=== PATIENT | female | born 1990 | race African-American/Black ===

== ENCOUNTER 2017-08-02 08:49 | Emergency (ER) | payer MEDICAID ==
[~2017-08-02] VITALS: Ht 167.6 cm; Wt 56.7 kg
[2017-08-02 09:17] VITALS: BP 118/76
== END 2017-08-02 09:41 | disposition home or self-care (01) ==
LOC: ER 08:49
DX: N39.0 Urinary tract infection, site not specified (principal)

== ENCOUNTER 2017-09-01 09:54 | Emergency (ER) | payer MEDICAID ==
[~2017-09-01] VITALS: Ht 167.6 cm; Wt 55.3 kg
[2017-09-01] MEDS ORDERED: SODIUM CHLORIDE 0.9% 1,000 ML IV ONE (10:14)
[2017-09-01 10:35] LABS: Basophils # (auto) 0 uL; Eosinophils # (auto) 0.1 uL; Hemoglobin 10.9 g/dL (12.2-16.2); Lymphocytes # (auto) 0.8 uL; Mean Platelet Volume 7.6 fL (6.9-10.8); Neutrophils # (auto) 5.5 uL; Red Cell Distribution Width 15.8 % (11.8-14.3); White Blood Cell 7.1 10^3/uL (4.4-10.8)
[2017-09-01 10:37] LABS: Basophils % (auto) 0.3 % (0.0-2.0); Eosinophils % (auto) 1.1 % (0.0-7.0); Hematocrit 33.3 % (36.0-46.0); Lymphocytes % (auto) 11.9 % (10.0-50.0); Mean Corpuscular Hemoglobin 26.6 pg (28.0-32.0); Mean Corpuscular Hgb Conc. 32.8 g/dL (32.0-36.0); Monocytes # (auto) 0.6 uL; Monocytes % (auto) 8.9 % (0.0-12.0); Neutrophils % (auto) 77.8 % (37.0-80.0); Platelet Count (auto) 284 10^3/uL (140-450)
[2017-09-01 11:04] LABS: Albumin 3.1 g/dL (3.4-5.0); BUN/Creatinine Ratio 11.6; Bilirubin, Total 0.2 mg/dL (0.2-1.0); Calcium 8.5 mg/dL (8.5-10.1); Total Protein 7.2 g/dL (6.4-8.2)
[2017-09-01 11:08] LABS: INR 0.98 (0.9-1.15); Prothrombin Time 10.7 sec (9.37-12.3)
[2017-09-01 11:11] VITALS: BP 125/70
[2017-09-01 11:23] LABS: Urine RBC None Seen /hpf (0 - 4)
[2017-09-01 11:30] LABS: Urine Bilirubin Negative (Negative); Urine Blood Negative /uL (Negative); Urine Color Yellow (Yellow); Urine Glucose Normal (Normal); Urine Ketone Negative (Negative); Urine Nitrite Negative (Negative); Urine Squamous Epithelial Cell FEW /hpf (<5); Urine Urobilinogen Normal (Negative); Urine pH 6.5 (5.0-8.0)
== END 2017-09-01 12:03 | disposition home or self-care (01) ==
LOC: ER 09:54 → EDBD 09:54 → ER 12:03
DX: K59.00 Constipation, unspecified (principal)
CPT/HCPCS: 36415; 74176; 80053; 81001; 85025; 85610; 85730; 96360; 99285; J7030

== ENCOUNTER 2018-11-03 19:29 | Emergency (ER) | payer MEDICAID ==
[~2018-11-03] VITALS: Ht 167.6 cm; Wt 59.0 kg
[2018-11-03 21:31] LABS: Urine Bacteria NONE SEEN /hpf (None Seen); Urine Blood Negative /uL (Negative); Urine Mucus FEW (None Seen); Urine Specific Gravity 1.024 (1.001-1.035); Urine WBC 3 /hpf (0 - 5)
[2018-11-04 00:59] LABS: White Blood Cell 5.7 10^3/uL (4.4-10.8)
[2018-11-04 01:01] LABS: Basophils # (auto) 0 uL; Basophils % (auto) 0.5 % (0.0-2.0); Eosinophils # (auto) 0 uL; Eosinophils % (auto) 0.2 % (0.0-7.0); Hematocrit 34.3 % (36.0-46.0); Lymphocytes # (auto) 0.4 uL; Lymphocytes % (auto) 6.5 % (10.0-50.0); Mean Corpuscular Hemoglobin 25.3 pg (28.0-32.0); Mean Corpuscular Hgb Conc. 32.2 g/dL (32.0-36.0); Mean Corpuscular Volume 78.6 fL (80.0-100.0); Monocytes % (auto) 17.7 % (0.0-12.0); Neutrophils # (auto) 4.3 uL; Neutrophils % (auto) 75.1 % (37.0-80.0); Platelet Count (auto) 270 10^3/uL (140-450); Red Blood Cells 4.36 10^6/uL (4.0-5.20); Red Cell Distribution Width 15.6 % (11.8-14.3)
[2018-11-04 01:11] LABS: INR 1.02 (0.9-1.15); Partial Thromboplastin Time 27.5 sec (23.78-33.04); Prothrombin Time 10.9 sec (9.27-12.13)
[2018-11-04 01:13] LABS: Albumin 3.6 g/dL (3.4-5.0); Anion Gap 11 (5-15); BUN/Creatinine Ratio 10.8; Blood Urea Nitrogen 9 mg/dL (7-18); Calcium 8.4 mg/dL (8.5-10.1); Carbon Dioxide 24 mmol/L (21-32); Chloride 101 mmol/L (98-107); GFR African American 105 mL/min; GFR Non-African American 86 mL/min; Glucose 94 mg/dL (74-106); Potassium 3.7 mmol/L (3.5-5.1); Sodium 136 mmol/L (136-145)
[2018-11-04 01:19] LABS: Alanine Aminotransferase 15 U/L (13-56); Alkaline Phosphatase 77 U/L (45-117); Aspartate Aminotransferase 20 U/L (15-37); Bilirubin, Total 0.2 mg/dL (0.2-1.0); Total Protein 7.9 g/dL (6.4-8.2)
[2018-11-04] MEDS ORDERED: KETOROLAC TROMETH 30 MG/ML 1ML VIAL IV ONE (04:45)
[2018-11-04 06:57] VITALS: BP 107/67
== END 2018-11-04 08:18 | disposition home or self-care (01) ==
LOC: ER 19:29
DX: K29.70 Gastritis, unspecified, without bleeding (principal)
CPT/HCPCS: 36415; 80053; 81001; 81025; 83735; 84484; 85025; 85379; 85610; 85730; 93005; 96374; 99284; J1885

== ENCOUNTER 2019-06-28 23:45 | Emergency (ER) | payer MEDICAID ==
[~2019-06-28] VITALS: Ht 167.6 cm; Wt 62.6 kg
[2019-06-29 00:16] VITALS: BP 118/82
[2019-06-29 00:39] LABS: Urine Bacteria FEW /hpf (None Seen); Urine Blood Negative /uL (Negative); Urine Mucus FEW (None Seen); Urine Specific Gravity 1.031 (1.001-1.035); Urine WBC 3 /hpf (0 - 5)
[2019-06-29 01:15] LABS: Eosinophils # (auto) 0.2 uL; Lymphocytes # (auto) 2.6 uL
[2019-06-29 01:17] LABS: Basophils # (auto) 0 uL; Basophils % (auto) 0.7 % (0.0-2.0); Eosinophils % (auto) 3.1 % (0.0-7.0); Hemoglobin 10.9 g/dL (12.2-16.2); Lymphocytes % (auto) 40.8 % (10.0-50.0); Mean Corpuscular Hemoglobin 24.8 pg (28.0-32.0); Mean Corpuscular Hgb Conc. 32.1 g/dL (32.0-36.0); Mean Corpuscular Volume 77.3 fL (80.0-100.0); Monocytes # (auto) 0.6 uL; Monocytes % (auto) 9.1 % (0.0-12.0); Neutrophils % (auto) 46.3 % (37.0-80.0); Nucleated Red Blood Cells % 0.1 %; Platelet Count (auto) 275 10^3/uL (140-450); Red Cell Distribution Width 16.2 % (11.8-14.3); White Blood Cell 6.5 10^3/uL (4.4-10.8)
[2019-06-29 01:37] LABS: Albumin 3.8 g/dL (3.4-5.0); Calcium 9.1 mg/dL (8.5-10.1); Potassium 3.8 mmol/L (3.5-5.1)
[2019-06-29 01:39] LABS: BUN/Creatinine Ratio 12.8
[2019-06-29 01:42] LABS: Bilirubin, Total 0.2 mg/dL (0.2-1.0); Total Protein 8.1 g/dL (6.4-8.2)
== END 2019-06-29 06:19 | disposition left against medical advice (07) ==
LOC: ER 23:48
DX: R10.2 Pelvic and perineal pain (principal); R42 Dizziness and giddiness; Z53.21 Procedure and treatment not carried out due to patient leaving prior to being seen by health care provider
CPT/HCPCS: 36415; 80053; 81001; 81025; 85025

== ENCOUNTER 2020-11-29 01:50 | Emergency (ER) | payer MEDICAID ==
[~2020-11-29] VITALS: Ht 167.6 cm; Wt 66.2 kg
[2020-11-29 02:14] LABS: Basophils # (auto) 0.1 10 ^3/uL (0-0.2); Basophils % (auto) 1.3 % (0.0-2.0); Eosinophils # (auto) 0.2 10 ^3/uL (0-0.8); Eosinophils % (auto) 2.6 % (0.0-7.0); Hematocrit 30.2 % (36.0-46.0); Hemoglobin 9.6 g/dL (12.2-16.2); Lymphocytes # (auto) 3.1 10 ^3/uL (0.4-5.4); Lymphocytes % (auto) 40.6 % (10.0-50.0); Mean Corpuscular Hemoglobin 23.3 pg (28.0-32.0); Mean Corpuscular Volume 72.8 fL (80.0-100.0); Monocytes # (auto) 0.7 10 ^3/uL (0-1.3); Monocytes % (auto) 9.3 % (0.0-12.0); Neutrophils # (auto) 3.5 10 ^3/uL (1.6-8.6); Neutrophils % (auto) 46.2 % (37.0-80.0); Red Blood Cells 4.14 10^6/uL (4.0-5.20); Red Cell Distribution Width 16.1 % (11.8-14.3); White Blood Cell 7.6 10^3/uL (4.4-10.8)
[2020-11-29 02:35] LABS: Albumin 3.5 g/dL (3.4-5.0); Anion Gap 7 (5-15); Calcium 8.3 mg/dL (8.5-10.1); Carbon Dioxide 26 mmol/L (21-32); Chloride 104 mmol/L (98-107); Glucose 90 mg/dL (74-106); Magnesium 2.1 mg/dL (1.6-2.6); Potassium 3.7 mmol/L (3.5-5.1); Sodium 137 mmol/L (136-145)
[2020-11-29 02:37] LABS: Alanine Aminotransferase 26 U/L (13-56); Alkaline Phosphatase 96 U/L (45-117); Aspartate Aminotransferase 29 U/L (15-37); BUN/Creatinine Ratio 13.9; Bilirubin, Total 0.2 mg/dL (0.2-1.0); Blood Urea Nitrogen 10 mg/dL (7-18); GFR African American 122 mL/min; GFR Non-African American 100 mL/min; Total Protein 7.7 g/dL (6.4-8.2)
[2020-11-29 04:00] VITALS: BP 113/71
== END 2020-11-29 04:13 | disposition home or self-care (01) ==
LOC: ER 01:52
DX: R00.2 Palpitations (principal); F41.9 Anxiety disorder, unspecified; Z32.02 Encounter for pregnancy test, result negative
CPT/HCPCS: 36415; 74018; 80053; 81025; 83735; 84484; 85025; 93005

== ENCOUNTER 2021-01-22 18:05 | Emergency (ER) | payer MEDICAID ==
[~2021-01-22] VITALS: Ht 167.6 cm; Wt 77.1 kg
[2021-01-22 19:17] LABS: Basophils # (auto) 0.1 10 ^3/uL (0-0.2); Lymphocytes # (auto) 2.1 10 ^3/uL (0.4-5.4); Monocytes # (auto) 0.7 10 ^3/uL (0-1.3); Nucleated Red Blood Cells % 0.1 %
[2021-01-22 19:19] LABS: Basophils % (auto) 0.7 % (0.0-2.0); Eosinophils # (auto) 0.1 10 ^3/uL (0-0.8); Eosinophils % (auto) 2.1 % (0.0-7.0); Hematocrit 31.1 % (36.0-46.0); Lymphocytes % (auto) 29.9 % (10.0-50.0); Mean Corpuscular Hemoglobin 23.1 pg (28.0-32.0); Mean Corpuscular Hgb Conc. 32.1 g/dL (32.0-36.0); Monocytes % (auto) 9.5 % (0.0-12.0); Neutrophils % (auto) 57.8 % (37.0-80.0); Platelet Count (auto) 388 10^3/uL (140-450); Red Blood Cells 4.32 10^6/uL (4.0-5.20); Red Cell Distribution Width 16.8 % (11.8-14.3)
[2021-01-22 19:35] LABS: Albumin 3.6 g/dL (3.4-5.0); Calcium 8.7 mg/dL (8.5-10.1); Potassium 4.3 mmol/L (3.5-5.1)
[2021-01-22 19:40] LABS: BUN/Creatinine Ratio 12.2; Bilirubin, Total 0.2 mg/dL (0.2-1.0)
[2021-01-22 20:07] LABS: Urine Amorphous Crystal FEW /hpf (None Seen); Urine Bacteria NONE SEEN /hpf (None Seen); Urine Blood Negative /uL (Negative); Urine Mucus FEW (None Seen); Urine Specific Gravity 1.022 (1.001-1.035); Urine WBC 1 /hpf (0 - 5)
[2021-01-23] MEDS ORDERED: ALUM & MAG HYDROX-SIMETH LIQ(MAALOX) 30 ML PO ONE
[2021-01-23] MEDS ORDERED: DONNATAL 5ml ORAL Elix (BELLADONNA ALK-PHENOBARB) PO ONE
[2021-01-23] MEDS ORDERED: LIDOCAINE VISCOUS 2% 15ML UD PO ONE
[2021-01-23 00:16] VITALS: BP 123/81
[2021-01-23] MEDS ORDERED: MAGNESIUM CITRATE SOLUTION 300 ML BTL PO ONE (00:30)
== END 2021-01-23 00:34 | disposition home or self-care (01) ==
LOC: ER 18:06
DX: K29.70 Gastritis, unspecified, without bleeding (principal); K59.00 Constipation, unspecified; F41.9 Anxiety disorder, unspecified; M19.90 Unspecified osteoarthritis, unspecified site
CPT/HCPCS: 36415; 74176; 80053; 81001; 84702; 85025

== ENCOUNTER 2021-02-28 19:58 | Emergency (ER) | payer MEDICAID ==
[~2021-02-28] VITALS: Ht 167.6 cm; Wt 75.7 kg
[2021-02-28 20:26] VITALS: BP 114/81
[2021-02-28 22:16] LABS: Urine Bacteria FEW /hpf (None Seen); Urine Blood Negative /uL (Negative); Urine Mucus FEW (None Seen); Urine Specific Gravity 1.027 (1.001-1.035); Urine WBC <1 /hpf (0 - 5)
== END 2021-02-28 23:55 | disposition home or self-care (01) ==
LOC: ER 19:58
DX: N30.10 Interstitial cystitis (chronic) without hematuria (principal); Z32.02 Encounter for pregnancy test, result negative
CPT/HCPCS: 81001; 81025; 87210

== ENCOUNTER 2022-01-17 15:44 | Emergency (ER) | payer MEDICAID ==
[~2022-01-17] VITALS: Ht 167.6 cm; Wt 80.7 kg
[2022-01-17 15:58] VITALS: BP 136/89
[2022-01-17] MEDS ORDERED: IBUPROFEN 800 MG TAB PO ONE (17:15)
[2022-01-17] MEDS ORDERED: HYDROcodone-ACET 5/325MG TAB PO ONE (17:15)
[2022-01-17] MEDS ORDERED: HYDR-4902 PO (19:46)
[2022-01-17] MEDS ORDERED: IBUP800T27 PO (19:46)
== END 2022-01-17 20:39 | disposition home or self-care (01) ==
LOC: ER 15:44 → EDBD 15:44 → ER 20:39
DX: S13.9XXA Sprain of joints and ligaments of unspecified parts of neck, initial encounter (principal); S93.401A Sprain of unspecified ligament of right ankle, initial encounter; S93.402A Sprain of unspecified ligament of left ankle, initial encounter; S20.219A Contusion of unspecified front wall of thorax, initial encounter; S63.509A Unspecified sprain of unspecified wrist, initial encounter; S00.93XA Contusion of unspecified part of head, initial encounter; V89.2XXA Person injured in unspecified motor-vehicle accident, traffic, initial encounter; Y93.89 Activity, other specified; Y92.89 Other specified places as the place of occurrence of the external cause; Y99.8 Other external cause status
CPT/HCPCS: 36415; 70450; 71250; 72125; 73090; 73600; 74176; 84702

== ENCOUNTER 2024-01-11 13:36 | Emergency (ER) | payer MEDICAID ==
[~2024-01-11] VITALS: Ht 167.6 cm; Wt 70.5 kg
[~2024-01-11 13:36] MED LIST: HYDR-4902 PO; IBUP-1456 PO
[2024-01-11 14:02] VITALS: BP 124/82; RESP 16; O2SAT 100
[2024-01-11 14:13] VITALS: PULSE 85
[2024-01-11 14:50] LABS: Urine Bacteria None Seen /hpf (None Seen)
[2024-01-11 15:01] LABS: Basophils # (auto) 0.1 10 ^3/uL (0-0.2); Hemoglobin 11.5 g/dL (12.2-16.2); Mean Corpuscular Hemoglobin 23.6 pg (28.0-32.0); Neutrophils # (auto) 3.6 10 ^3/uL (1.6-8.6); Red Blood Cells 4.86 10^6/uL (4.0-5.20)
[2024-01-11 15:03] LABS: Basophils % (auto) 0.8 % (0.0-2.0); Eosinophils # (auto) 0.2 10 ^3/uL (0-0.8); Eosinophils % (auto) 2.5 % (0.0-7.0); Lymphocytes # (auto) 2.1 10 ^3/uL (0.4-5.4); Lymphocytes % (auto) 32.2 % (10.0-50.0); Mean Corpuscular Hgb Conc. 31.1 g/dL (32.0-36.0); Monocytes # (auto) 0.5 10 ^3/uL (0-1.3); Monocytes % (auto) 8.5 % (0.0-12.0); White Blood Cell 6.4 10^3/uL (4.4-10.8)
[2024-01-11 15:07] LABS: Red Cell Distribution Width 27.7 % (11.8-14.3)
[2024-01-11 15:09] LABS: Urine Blood Negative /uL (Negative); Urine Clarity Clear (Clear); Urine Color Colorless (Yellow); Urine Protein, UAD Negative (Negative); Urine Specific Gravity 1.011 (1.001-1.035); Urine Urobilinogen Normal (Negative); Urine WBC <1 /hpf (0 - 5)
[2024-01-11 15:23] LABS: Alanine Aminotransferase 13 U/L (7-40); Albumin 4.4 g/dL (3.2-4.8); Alkaline Phosphatase 75 U/L (46-116); Anion Gap 4 (5-15); Aspartate Aminotransferase 23 U/L (13-40); BUN/Creatinine Ratio 11.5 (10.0-20.0); Bilirubin, Total 0.3 mg/dL (0.2-1.0); Blood Urea Nitrogen 9 mg/dL (9-23); Calcium 9.6 mg/dL (8.5-10.1); Carbon Dioxide 27 mmol/L (20-30); Chloride 107 mmol/L (98-107); Glucose 84 mg/dL (74-106); Potassium 4.5 mmol/L (3.5-5.1); Sodium 138 mmol/L (136-145)
[2024-01-11 15:24] LABS: Total Protein 7.1 g/dL (5.7-8.2)
[2024-01-11] MEDS ORDERED: MECLIZINE HCL 25 MG TAB PO ONE (16:45)
[2024-01-11 16:55] LABS: Anisocytosis Slight; Hypochromia Moderate; Platelet Estimate Adequate
[2024-01-11 16:56] LABS: Tear Drop Cells FEW
[2024-01-11] MEDS ORDERED: MECL1TAB42 PO (17:43)
[2024-01-11] MEDS ORDERED: SODIENE35 RE (17:43)
[2024-01-11] MEDS ORDERED: LACT10SO3 PO (17:43)
[2024-01-11] MEDS ORDERED: LORA10CA PO (17:43)
== END 2024-01-11 23:39 | disposition home or self-care (01) ==
LOC: ER 13:36
DX: J34.89 Other specified disorders of nose and nasal sinuses (principal); K59.00 Constipation, unspecified; R42 Dizziness and giddiness; Z32.02 Encounter for pregnancy test, result negative
CPT/HCPCS: 36415; 70450; 74018; 80053; 81001; 81025; 82962; 84484; 85025; 93005

== ENCOUNTER 2024-04-03 23:33 | Emergency (ER) | payer MEDICAID ==
[~2024-04-03] VITALS: Ht 167.6 cm; Wt 65.0 kg
[~2024-04-03 23:33] MED LIST changes: +LACT10SO3 PO; +LORA10CA PO; +MECL1TAB42 PO; +SODIENE35 RE
[2024-04-03 23:54] LABS: Basophils # (auto) 0.1 10 ^3/uL (0-0.2); Eosinophils # (auto) 0.2 10 ^3/uL (0-0.8); Lymphocytes # (auto) 2.9 10 ^3/uL (0.4-5.4); Mean Corpuscular Hgb Conc. 33.3 g/dL (32.0-36.0); Neutrophils # (auto) 3.2 10 ^3/uL (1.6-8.6)
[2024-04-03 23:56] LABS: Basophils % (auto) 1.2 % (0.0-2.0); Hematocrit 35.9 % (36.0-46.0); Hemoglobin 11.9 g/dL (12.2-16.2); Lymphocytes % (auto) 40.7 % (10.0-50.0); Mean Corpuscular Hemoglobin 26.3 pg (28.0-32.0); Mean Corpuscular Volume 79.2 fL (80.0-100.0); Monocytes # (auto) 0.7 10 ^3/uL (0-1.3); Monocytes % (auto) 9.3 % (0.0-12.0); Neutrophils % (auto) 45.8 % (37.0-80.0); Nucleated Red Blood Cells % 0.1 %; Red Blood Cells 4.53 10^6/uL (4.0-5.20); Red Cell Distribution Width 16.3 % (11.8-14.3); White Blood Cell 7.1 10^3/uL (4.4-10.8)
[2024-04-04 00:09] LABS: INR 1.04 (0.9-1.15); Partial Thromboplastin Time 24.6 SEC (24.5-34.5)
[2024-04-04 00:10] LABS: Albumin 4.5 g/dL (3.2-4.8); Alkaline Phosphatase 77 U/L (46-116); Anion Gap 6 (5-15); Aspartate Aminotransferase 13 U/L (13-40); BUN/Creatinine Ratio 6.9 (10.0-20.0); Blood Urea Nitrogen 6 mg/dL (9-23); Calcium 9.9 mg/dL (8.7-10.4); Carbon Dioxide 24 mmol/L (20-30); Chloride 106 mmol/L (98-107); Glucose 87 mg/dL (74-106); Magnesium 2.1 mg/dL (1.6-2.6); Potassium 3.8 mmol/L (3.5-5.1); Sodium 136 mmol/L (136-145)
[2024-04-04 00:11] LABS: Bilirubin, Total 0.4 mg/dL (0.2-1.0); Total Protein 7.4 g/dL (5.7-8.2)
[2024-04-04 00:12] LABS: Alanine Aminotransferase < 9 U/L (7-40)
[2024-04-04] MEDS: LIDOCAINE VISCOUS 2% 15ML UD PO ONE (01:17)
[2024-04-04] MEDS: MAALOX PLUS or MAALOX 30 ML PO ONE (01:17)
[2024-04-04] MEDS ORDERED: CALC100023 PO (02:10)
[2024-04-04] MEDS ORDERED: PANT40TA2 PO (02:10)
[2024-04-04] MEDS ORDERED: ALBU108A5 IN (02:10)
[2024-04-04] MEDS: ALBUTEROL SULF 2.5 MG/0.5ML(0.5%) NEB SOLN NEB ONE (02:13)
[2024-04-04] MEDS: IPRATROPIUM BROM 0.5 MG/2.5ML INH SOL NEB ONE (02:13)
[2024-04-04] MEDS: DexAMETHasone SOD PHOS 10MG/1ML VIAL INJ IM ONE (03:10)
[2024-04-04 03:16] VITALS: BP 134/88; PULSE 99; RESP 16; TEMP 98.6; O2SAT 99
== END 2024-04-04 03:17 | disposition home or self-care (01) ==
LOC: ER 23:33
DX: R07.9 Chest pain, unspecified (principal); E04.1 Nontoxic single thyroid nodule; R06.02 Shortness of breath; R10.9 Unspecified abdominal pain; F41.9 Anxiety disorder, unspecified; M19.90 Unspecified osteoarthritis, unspecified site; Z79.899 Other long term (current) drug therapy
CPT/HCPCS: 36415; 70486; 70490; 71045; 80053; 83735; 83880; 84484; 85025; 85610; 85730; 93005; 94640; 96372; 99285; J1100; J7644

== ENCOUNTER 2024-04-08 15:40 | Emergency (ER) | payer MEDICAID ==
[~2024-04-08] VITALS: Ht 167.6 cm; Wt 51.8 kg
[~2024-04-08 15:40] MED LIST changes: +ALBU108A5 IN; +CALC100023 PO; +PANT40TA2 PO
[2024-04-08 16:47] LABS: Basophils # (auto) 0.1 10 ^3/uL (0-0.2); Basophils % (auto) 0.9 % (0.0-2.0); Eosinophils # (auto) 0 10 ^3/uL (0-0.8); Eosinophils % (auto) 0.6 % (0.0-7.0); Hematocrit 35.5 % (36.0-46.0); Hemoglobin 11.7 g/dL (12.2-16.2); Lymphocytes % (auto) 31.6 % (10.0-50.0); Mean Corpuscular Hgb Conc. 32.9 g/dL (32.0-36.0); Mean Corpuscular Volume 79.1 fL (80.0-100.0); Monocytes # (auto) 0.5 10 ^3/uL (0-1.3); Monocytes % (auto) 7.6 % (0.0-12.0); Neutrophils # (auto) 3.7 10 ^3/uL (1.6-8.6); Neutrophils % (auto) 59.3 % (37.0-80.0); Nucleated Red Blood Cells % 0.1 %; Red Blood Cells 4.49 10^6/uL (4.0-5.20); Red Cell Distribution Width 15.7 % (11.8-14.3); White Blood Cell 6.3 10^3/uL (4.4-10.8)
[2024-04-08 16:59] VITALS: PULSE 95; RESP 18; TEMP 98.1; O2SAT 99
[2024-04-08 17:06] LABS: Albumin 4.5 g/dL (3.2-4.8); Alkaline Phosphatase 75 U/L (46-116); Anion Gap 9 (5-15); Aspartate Aminotransferase 10 U/L (13-40); Calcium 9.8 mg/dL (8.7-10.4); Carbon Dioxide 24 mmol/L (20-30); Chloride 106 mmol/L (98-107); Glucose 87 mg/dL (74-106); Potassium 3.9 mmol/L (3.5-5.1); Sodium 139 mmol/L (136-145)
[2024-04-08 17:09] LABS: BUN/Creatinine Ratio 7.2 (10.0-20.0); Blood Urea Nitrogen 6 mg/dL (9-23)
[2024-04-08 17:11] LABS: Bilirubin, Total 0.6 mg/dL (0.2-1.0); Total Protein 7.5 g/dL (5.7-8.2)
[2024-04-08 17:17] LABS: Alanine Aminotransferase 9 U/L (7-40)
[2024-04-08 17:19] LABS: Urine Bacteria None Seen /hpf (None Seen)
[2024-04-08 17:40] LABS: Urine Blood Negative /uL (Negative); Urine Clarity Clear (Clear); Urine Color Light-Yellow (Yellow); Urine Mucus FEW (None Seen); Urine Protein, UAD Negative (Negative); Urine Specific Gravity 1.015 (1.001-1.035); Urine Urobilinogen Normal (Negative); Urine WBC 1 /hpf (0 - 5)
[2024-04-08 19:00] VITALS: BP 119/76; PULSE 101; RESP 19; O2SAT 97
== END 2024-04-08 19:22 | disposition home or self-care (01) ==
LOC: ER 15:40
DX: R07.89 Other chest pain (principal); J34.89 Other specified disorders of nose and nasal sinuses; M19.90 Unspecified osteoarthritis, unspecified site; F41.9 Anxiety disorder, unspecified; Z98.890 Other specified postprocedural states; Z79.899 Other long term (current) drug therapy
CPT/HCPCS: 36415; 71045; 80053; 81001; 84484; 85025; 93005

== ENCOUNTER 2024-04-10 12:07 | Inpatient (IN) | payer MEDICAID ==
[~2024-04-10] VITALS: Ht 167.6 cm; Wt 74.8 kg
[2024-04-10] MEDS: PANTOPRAZOLE 40 MG/10 ML VIAL INJ IV ONE ×2 (12:38→21:45)
[2024-04-10] MEDS: ASPirin 81 mg TAB PO ONE (12:38)
[2024-04-10 13:04] LABS: White Blood Cell 2.4 10^3/uL (4.4-10.8)
[2024-04-10 13:06] LABS: Hemoglobin 11.1 g/dL (12.2-16.2); Mean Corpuscular Hemoglobin 25.9 pg (28.0-32.0); Mean Corpuscular Hgb Conc. 32.8 g/dL (32.0-36.0); Mean Corpuscular Volume 79.2 fL (80.0-100.0); Red Cell Distribution Width 15.2 % (11.8-14.3)
[2024-04-10 13:14] LABS: Basophils % (manual) 0 (0.0-2.0); Blast Cells 0; Metamyelocytes % 0; Myelocytes % 0; Promyelocytes % 0; Reactive Lymphocytes 0
[2024-04-10 13:22] LABS: Alanine Aminotransferase 10 U/L (7-40); Albumin 4.3 g/dL (3.2-4.8); Alkaline Phosphatase 76 U/L (46-116); Anion Gap 8 (5-15); Aspartate Aminotransferase 11 U/L (13-40); BUN/Creatinine Ratio 8.2 (10.0-20.0); Bilirubin, Total 0.5 mg/dL (0.2-1.0); Blood Urea Nitrogen 6 mg/dL (9-23); Calcium 9.7 mg/dL (8.7-10.4); Carbon Dioxide 22 mmol/L (20-30); Chloride 108 mmol/L (98-107); Glucose 88 mg/dL (74-106); Potassium 4.3 mmol/L (3.5-5.1); Sodium 138 mmol/L (136-145); Total Protein 6.9 g/dL (5.7-8.2)
[2024-04-10 13:25] LABS: Anisocytosis Slight; Band Neutrophils % (manual) 1; Eosinophils % (manual) 2 (0-7); Lymphocytes % (manual) 27 (10.0-50.0); Monocytes % (manual) 23 (0-12); Platelet Estimate Adequate
[2024-04-10 15:35] VITALS: PULSE 106; RESP 18; O2SAT 100
[2024-04-10] MEDS ORDERED: HYDROcodone-ACET 5/325MG TAB PO PRN (17:15)
[2024-04-10] MEDS ORDERED: ONDANSETRON HCL 4 MG/2 ML VIAL IV PRN (17:15)
[2024-04-10] MEDS ORDERED: MORPHINE SULFATE INJ 2 MG/ml SYRG IV PRN (17:15)
[2024-04-10] MEDS ORDERED: DOCUSATE SOD 100 MG CAP PO PRN (17:15)
[2024-04-10] MEDS ORDERED: NITROGLYCERIN 0.4 MG SL TAB SL PRN (17:15)
[2024-04-10 20:00] VITALS: BP 119/82; PULSE 109; RESP 20; TEMP 98.6; O2SAT 100
[2024-04-10 20:16] VITALS: PULSE 106; RESP 18; O2SAT 100
[2024-04-10] MEDS: SODIUM CHLOR 0.9% PF (SALINE LOCK) 10ML VIAL/SYR IV SCH (21:14)
[2024-04-11] VITALS (11 sets, daily range): BP systolic 108–125; BP diastolic 75–88; PULSE 72–110; RESP 16–20; TEMP 97.5–98.5; O2SAT 97–100
[2024-04-11] MEDS: CALCIUM CARB 500 MG CHEW TAB PO ONE (01:39)
[2024-04-11 09:50] LABS: Hemoglobin 11.8 g/dL (12.2-16.2); Red Cell Distribution Width 15.2 % (11.8-14.3); White Blood Cell 2.8 10^3/uL (4.4-10.8)
[2024-04-11 09:52] LABS: Hematocrit 35.4 % (36.0-46.0); Mean Corpuscular Hemoglobin 26.3 pg (28.0-32.0); Mean Corpuscular Hgb Conc. 33.2 g/dL (32.0-36.0); Mean Corpuscular Volume 79.2 fL (80.0-100.0); Red Blood Cells 4.47 10^6/uL (4.0-5.20)
[2024-04-11 09:55] LABS: Basophils % (manual) 0 (0.0-2.0); Blast Cells 0; Metamyelocytes % 0; Myelocytes % 0; Promyelocytes % 0
[2024-04-11 09:56] LABS: Chloride 106 mmol/L (98-107); Potassium 3.7 mmol/L (3.5-5.1); Sodium 137 mmol/L (136-145)
[2024-04-11 09:57] LABS: Anion Gap 6 (5-15); Calcium 9.8 mg/dL (8.7-10.4); Carbon Dioxide 25 mmol/L (20-30)
[2024-04-11] MEDS: ENOXAPARIN SOD 40 MG/0.4 ML SYRINGE SC SCH (10:00)
[2024-04-11 10:02] LABS: BUN/Creatinine Ratio 8.1 (10.0-20.0); Blood Urea Nitrogen 7 mg/dL (9-23); Glucose 123 mg/dL (74-106); Triglycerides 65 mg/dL (< 150)
[2024-04-11 10:03] LABS: LDL Cholesterol 55 mg/dL (< 100); Magnesium 1.8 mg/dL (1.6-2.6)
[2024-04-11 10:04] LABS: Cholesterol 130 mg/dL (< 200); HDL Cholesterol 58 mg/dL (40-59)
[2024-04-11 10:11] LABS: Band Neutrophils % (manual) 1; Eosinophils % (manual) 2 (0-7); Lymphocytes % (manual) 22 (10.0-50.0); Monocytes % (manual) 21 (0-12); Reactive Lymphocytes 1
[2024-04-11 10:13] LABS: Anisocytosis Slight; Platelet Estimate Adequate
[2024-04-11] MEDS: METOPROLOL TARTRATE 25 MG TAB PO ONE (10:45)
[2024-04-11 11:33] LABS: Urine Bacteria None Seen /hpf (None Seen)
[2024-04-11 12:04] LABS: Urine Blood 1+ /uL (Negative); Urine Clarity Clear (Clear); Urine Color Colorless (Yellow); Urine Protein, UAD Negative (Negative); Urine Specific Gravity 1.006 (1.001-1.035); Urine Urobilinogen Normal (Negative); Urine WBC <1 /hpf (0 - 5); Urine pH 5.5 (5.0-9.0)
[2024-04-11 12:15] LABS: Amphetamine Screen, Urine Neg (NEGATIVE); Benzodiazephine Screen, Urine Neg (NEGATIVE)
[2024-04-11 12:16] LABS: Barbiturate Scree,Urine Neg (NEGATIVE); Cocaine Screen, Urine Neg (NEGATIVE)
[2024-04-11 12:17] LABS: Cannabinoid Screen, Urine Neg (NEGATIVE); Opiate Scree,Urine Neg (NEGATIVE); Phencyclidine Screen, Urine Neg (NEGATIVE)
[2024-04-11] MEDS: ACETAMINOPHEN 325 MG TAB PO PRN (18:51)
[2024-04-11] MEDS: METOPROLOL TARTRATE 25 MG TAB PO SCH (22:00)
[2024-04-11] MEDS: MELATONIN 5 MG TAB ONE (23:30)
[2024-04-12] VITALS (7 sets, daily range): BP systolic 106–121; BP diastolic 73–88; PULSE 87–113; RESP 16–18; TEMP 36.8; O2SAT 96–99
[2024-04-12] MEDS: PANTOPRAZOLE 40 MG TAB PO SCH (06:19)
[2024-04-12 06:52] LABS: White Blood Cell 2.4 10^3/uL (4.4-10.8)
[2024-04-12 06:56] LABS: Albumin 4.2 g/dL (3.2-4.8); Alkaline Phosphatase 73 U/L (46-116); Anion Gap 9 (5-15); Aspartate Aminotransferase < 8 U/L (13-40); BUN/Creatinine Ratio 6.8 (10.0-20.0); Blood Urea Nitrogen 6 mg/dL (9-23); Calcium 9.5 mg/dL (8.7-10.4); Carbon Dioxide 26 mmol/L (20-30); Chloride 104 mmol/L (98-107); Glucose 91 mg/dL (74-106); Sodium 139 mmol/L (136-145)
[2024-04-12 06:57] LABS: Bilirubin, Total 0.3 mg/dL (0.2-1.0); Hematocrit 36.6 % (36.0-46.0); Hemoglobin 12.1 g/dL (12.2-16.2); Mean Corpuscular Hemoglobin 26.1 pg (28.0-32.0); Mean Corpuscular Volume 79.2 fL (80.0-100.0); Red Blood Cells 4.62 10^6/uL (4.0-5.20); Red Cell Distribution Width 15.2 % (11.8-14.3)
[2024-04-12 06:58] LABS: Alanine Aminotransferase < 9 U/L (7-40); Band Neutrophils % (manual) 0; Basophils % (manual) 0 (0.0-2.0); Blast Cells 0; Metamyelocytes % 0; Myelocytes % 0; Promyelocytes % 0; Reactive Lymphocytes 0
[2024-04-12 07:38] LABS: Lymphocytes % (manual) 28 (10.0-50.0)
[2024-04-12 07:39] LABS: Eosinophils % (manual) 3 (0-7); Monocytes % (manual) 24 (0-12); Platelet Estimate Adequate
[2024-04-12] MEDS ORDERED: PANT40T PO (15:23)
[2024-04-12] MEDS ORDERED: MET25T PO (15:23)
[2024-04-12] MEDS ORDERED: METO25TA5 PO (20:20)
[2024-04-12] MEDS ORDERED: PANT40TA2 PO (20:20)
[2024-04-12] MEDS ORDERED: METO25TA93 PO (20:22)
[2024-04-12] MEDS ORDERED: MELATONIN 5 MG TAB PO SCH (22:00)
== END 2024-04-12 22:10 | disposition home or self-care (01) | DRG 203 ==
LOC: ER 12:07 → TELE 17:09 → TELE-CENTR 04-11 00:45
PROVIDERS: ADMIT Internal Medicine Geriatric Medicine; ATTEND Internal Medicine Geriatric Medicine
DX: R07.89 Other chest pain (principal); E04.1 Nontoxic single thyroid nodule; E05.90 Thyrotoxicosis, unspecified without thyrotoxic crisis or storm; I07.1 Rheumatic tricuspid insufficiency; K21.9 Gastro-esophageal reflux disease without esophagitis; M06.9 Rheumatoid arthritis, unspecified; F41.9 Anxiety disorder, unspecified; M79.7 Fibromyalgia; Z83.2 Family history of diseases of the blood and blood-forming organs and certain disorders involving the immune mechanism; Z86.19 Personal history of other infectious and parasitic diseases; Z79.899 Other long term (current) drug therapy
CPT/HCPCS: 36415; 71046; 76536; 80048; 80053; 80061; 80307; 81001; 83036; 83735; 84436; 84439; 84443; 84481; 84484; 85007; 85027; 93005; 93306; G0378; J2470

== ENCOUNTER 2024-04-13 02:24 | Emergency (ER) | payer MEDICAID ==
[~2024-04-13] VITALS: Ht 170.2 cm; Wt 65.9 kg
[~2024-04-13 02:24] MED LIST changes: +METO25TA93 PO
[2024-04-13 03:00] VITALS: RESP 22; O2SAT 99
[2024-04-13 03:25] LABS: Mean Corpuscular Hemoglobin 26.1 pg (28.0-32.0)
[2024-04-13 03:28] LABS: Hemoglobin 11.9 g/dL (12.2-16.2); Mean Corpuscular Hgb Conc. 33.2 g/dL (32.0-36.0); Mean Corpuscular Volume 78.8 fL (80.0-100.0); Red Blood Cells 4.57 10^6/uL (4.0-5.20); Red Cell Distribution Width 15.1 % (11.8-14.3); White Blood Cell 2.3 10^3/uL (4.4-10.8)
[2024-04-13 03:36] LABS: Alkaline Phosphatase 76 U/L (46-116); Anion Gap 8 (5-15); BUN/Creatinine Ratio 7.5 (10.0-20.0); Blood Urea Nitrogen 6 mg/dL (9-23); Calcium 9.4 mg/dL (8.7-10.4); Carbon Dioxide 25 mmol/L (20-30); Chloride 104 mmol/L (98-107); Glucose 100 mg/dL (74-106); Magnesium 1.9 mg/dL (1.6-2.6); Potassium 3.8 mmol/L (3.5-5.1); Sodium 137 mmol/L (136-145)
[2024-04-13 03:37] LABS: Albumin 4.2 g/dL (3.2-4.8); Aspartate Aminotransferase 9 U/L (13-40); Band Neutrophils % (manual) 0; Basophils % (manual) 0 (0.0-2.0); Bilirubin, Total 0.3 mg/dL (0.2-1.0); Blast Cells 0; Metamyelocytes % 0; Myelocytes % 0; Promyelocytes % 0; Reactive Lymphocytes 0; Total Protein 7.2 g/dL (5.7-8.2)
[2024-04-13 03:45] LABS: Alanine Aminotransferase < 9 U/L (7-40)
[2024-04-13 04:19] LABS: Lymphocytes % (manual) 24 (10.0-50.0)
[2024-04-13 04:20] LABS: Anisocytosis Slight; Eosinophils % (manual) 4 (0-7); Large Platelets FEW; Monocytes % (manual) 26 (0-12); Platelet Estimate Adequate
[2024-04-13 06:00] VITALS: BP 111/72; PULSE 90; RESP 22; TEMP 98.6; O2SAT 99
== END 2024-04-13 05:53 | disposition home or self-care (01) ==
LOC: EDBD 02:24 → ER 02:24
DX: R00.2 Palpitations (principal); R42 Dizziness and giddiness; K21.9 Gastro-esophageal reflux disease without esophagitis; Z79.899 Other long term (current) drug therapy
CPT/HCPCS: 36415; 80053; 83735; 84484; 85007; 85027; 93005

== ENCOUNTER 2024-04-18 13:00 | Emergency (ER) | payer MEDICAID ==
[~2024-04-18] VITALS: Ht 165.1 cm; Wt 56.8 kg
[2024-04-18 13:51] LABS: Eosinophils # (auto) 0.2 10 ^3/uL (0-0.8)
[2024-04-18 13:53] LABS: Basophils # (auto) 0 10 ^3/uL (0-0.2); Basophils % (auto) 0.7 % (0.0-2.0); Eosinophils % (auto) 3.6 % (0.0-7.0); Hematocrit 34.3 % (36.0-46.0); Hemoglobin 11.2 g/dL (12.2-16.2); Lymphocytes # (auto) 1.1 10 ^3/uL (0.4-5.4); Mean Corpuscular Hemoglobin 25.8 pg (28.0-32.0); Mean Corpuscular Hgb Conc. 32.8 g/dL (32.0-36.0); Mean Corpuscular Volume 78.6 fL (80.0-100.0); Monocytes # (auto) 0.5 10 ^3/uL (0-1.3); Monocytes % (auto) 9.5 % (0.0-12.0); Neutrophils # (auto) 3.9 10 ^3/uL (1.6-8.6); Neutrophils % (auto) 67.2 % (37.0-80.0); Nucleated Red Blood Cells % 0.1 %; Red Blood Cells 4.36 10^6/uL (4.0-5.20); White Blood Cell 5.8 10^3/uL (4.4-10.8)
[2024-04-18 14:09] LABS: Alanine Aminotransferase 11 U/L (7-40); Albumin 4.2 g/dL (3.2-4.8); Alkaline Phosphatase 78 U/L (46-116); Anion Gap 7 (5-15); Aspartate Aminotransferase 13 U/L (13-40); Carbon Dioxide 24 mmol/L (20-30); Chloride 106 mmol/L (98-107); Glucose 95 mg/dL (74-106); Potassium 3.7 mmol/L (3.5-5.1); Sodium 137 mmol/L (136-145)
[2024-04-18 14:10] LABS: BUN/Creatinine Ratio 5.8 (10.0-20.0); Bilirubin, Total 0.3 mg/dL (0.2-1.0); Blood Urea Nitrogen < 5 mg/dL (9-23); Total Protein 7.2 g/dL (5.7-8.2)
[2024-04-18] MEDS: MAALOX PLUS or MAALOX 30 ML PO ONE (15:57)
[2024-04-18] MEDS: FAMOTIDINE 20 MG TAB PO ONE (15:58)
[2024-04-18] MEDS: LIDOCAINE VISCOUS 2% 15ML UD PO ONE (15:58)
[2024-04-18] MEDS: MECLIZINE HCL 25 MG TAB PO ONE (16:02)
[2024-04-18 16:05] VITALS: BP 116/79; PULSE 93; RESP 20; TEMP 98.3; O2SAT 100
[2024-04-18] MEDS ORDERED: MAA30LQ GT (16:25)
[2024-04-18] MEDS: METOPROLOL TARTRATE 25 MG TAB PO ONE (16:28)
[2024-04-18] MEDS ORDERED: LIDO2SOL26 MT (16:29)
[2024-04-18] MEDS ORDERED: PANT40TA2 PO (16:29)
== END 2024-04-18 16:34 | disposition home or self-care (01) ==
LOC: EDBD 13:00 → ER 13:04
DX: K29.70 Gastritis, unspecified, without bleeding (principal); K21.9 Gastro-esophageal reflux disease without esophagitis; R42 Dizziness and giddiness; E86.0 Dehydration; I10 Essential (primary) hypertension; R07.9 Chest pain, unspecified
CPT/HCPCS: 36415; 71045; 80053; 84484; 85025; 93005

== ENCOUNTER 2024-04-23 17:50 | Inpatient (IN) | payer MEDICAID ==
[~2024-04-23] VITALS: Ht 167.6 cm; Wt 62.6 kg
[~2024-04-23 17:50] MED LIST changes: +LIDO2SOL26 MT; +MAA30LQ GT
[2024-04-23 19:23] LABS: Basophils # (auto) 0.1 10 ^3/uL (0-0.2); Basophils % (auto) 1.2 % (0.0-2.0); Eosinophils # (auto) 0.1 10 ^3/uL (0-0.8); Eosinophils % (auto) 1.8 % (0.0-7.0); Hematocrit 31.3 % (36.0-46.0); Hemoglobin 10.2 g/dL (12.2-16.2); Lymphocytes # (auto) 1.3 10 ^3/uL (0.4-5.4); Lymphocytes % (auto) 23.9 % (10.0-50.0); Mean Corpuscular Hemoglobin 25.6 pg (28.0-32.0); Mean Corpuscular Hgb Conc. 32.7 g/dL (32.0-36.0); Mean Corpuscular Volume 78.2 fL (80.0-100.0); Monocytes # (auto) 0.7 10 ^3/uL (0-1.3); Monocytes % (auto) 11.7 % (0.0-12.0); Neutrophils # (auto) 3.5 10 ^3/uL (1.6-8.6); Neutrophils % (auto) 61.4 % (37.0-80.0); Nucleated Red Blood Cells % 0.1 %; Platelet Count (auto) 502 10^3/uL (140-450); Red Blood Cells 4.01 10^6/uL (4.0-5.20); Red Cell Distribution Width 15.5 % (11.8-14.3); White Blood Cell 5.6 10^3/uL (4.4-10.8)
[2024-04-23 19:39] LABS: Alanine Aminotransferase 10 U/L (7-40); Alkaline Phosphatase 71 U/L (46-116); Anion Gap 7 (5-15); Aspartate Aminotransferase 11 U/L (13-40); Calcium 9.5 mg/dL (8.7-10.4); Carbon Dioxide 25 mmol/L (20-30); Chloride 108 mmol/L (98-107); Glucose 91 mg/dL (74-106); Lipase 47 U/L (12-53); Potassium 3.6 mmol/L (3.5-5.1); Sodium 140 mmol/L (136-145)
[2024-04-23 19:40] LABS: Bilirubin, Total 0.3 mg/dL (0.2-1.0); Blood Urea Nitrogen < 5 mg/dL (9-23)
[2024-04-23] MEDS: HALOPERIDOL LACTATE 5 MG/ML INJ VIAL IM ONE (20:29)
[2024-04-23 21:07] LABS: COVID19 ANTIGEN SOFIA FIA NEGATIVE (NEGATIVE)
[2024-04-23 21:28] VITALS: PULSE 118; RESP 21; O2SAT 98
[2024-04-23] MEDS ORDERED: HALOPERIDOL LACTATE 5 MG/ML INJ VIAL IM PRN (22:45)
[2024-04-23] MEDS ORDERED: ONDANSETRON HCL 4 MG/2 ML VIAL IV PRN (22:45)
[2024-04-23] MEDS ORDERED: HYDROcodone-ACET 5/325MG TAB PO PRN (22:45)
[2024-04-23] MEDS ORDERED: MECLIZINE HCL 25 MG TAB PO PRN (22:45)
[2024-04-24] VITALS (9 sets, daily range): BP systolic 112–125; BP diastolic 70–78; PULSE 70–107; RESP 12–20; TEMP 97.7–98.8; O2SAT 18–100
[2024-04-24] MEDS ORDERED: NITROGLYCERIN 0.4 MG SL TAB SL PRN
[2024-04-24] MEDS ORDERED: MORPHINE SULFATE INJ 2 MG/ml SYRG IV PRN
[2024-04-24 00:09] LABS: Urine Bacteria None Seen /hpf (None Seen)
[2024-04-24 00:25] LABS: Urine Blood Negative /uL (Negative); Urine Clarity Clear (Clear); Urine Color Light-Yellow (Yellow); Urine Mucus FEW (None Seen); Urine Protein, UAD Negative (Negative); Urine Specific Gravity 1.012 (1.001-1.035); Urine Urobilinogen Normal (Negative); Urine WBC <1 /hpf (0 - 5)
[2024-04-24 00:32] LABS: Amphetamine Screen, Urine Neg (NEGATIVE); Barbiturate Scree,Urine Neg (NEGATIVE); Benzodiazephine Screen, Urine Neg (NEGATIVE); Cocaine Screen, Urine Neg (NEGATIVE); Opiate Scree,Urine Neg (NEGATIVE)
[2024-04-24 00:33] LABS: Cannabinoid Screen, Urine Neg (NEGATIVE); Phencyclidine Screen, Urine Neg (NEGATIVE)
[2024-04-24 05:15] LABS: Basophils # (auto) 0.1 10 ^3/uL (0-0.2); Eosinophils # (auto) 0.1 10 ^3/uL (0-0.8); Hemoglobin 9.2 g/dL (12.2-16.2); Lymphocytes # (auto) 1.6 10 ^3/uL (0.4-5.4); Monocytes # (auto) 0.8 10 ^3/uL (0-1.3); Nucleated Red Blood Cells % 0.1 %; White Blood Cell 5.7 10^3/uL (4.4-10.8)
[2024-04-24 05:19] LABS: Alanine Aminotransferase 12 U/L (7-40); Albumin 3.4 g/dL (3.2-4.8); Alkaline Phosphatase 61 U/L (46-116); Anion Gap 7 (5-15); Aspartate Aminotransferase 20 U/L (13-40); Basophils % (auto) 1.1 % (0.0-2.0); Calcium 9.1 mg/dL (8.7-10.4); Carbon Dioxide 25 mmol/L (20-30); Chloride 109 mmol/L (98-107); Eosinophils % (auto) 2.2 % (0.0-7.0); Glucose 88 mg/dL (74-106); Hematocrit 27.9 % (36.0-46.0); Lymphocytes % (auto) 28.9 % (10.0-50.0); Mean Corpuscular Hemoglobin 25.8 pg (28.0-32.0); Mean Corpuscular Volume 78.2 fL (80.0-100.0); Monocytes % (auto) 14.6 % (0.0-12.0); Neutrophils % (auto) 53.2 % (37.0-80.0); Platelet Count (auto) 434 10^3/uL (140-450); Potassium 3.8 mmol/L (3.5-5.1); Red Blood Cells 3.57 10^6/uL (4.0-5.20); Red Cell Distribution Width 15.2 % (11.8-14.3); Sodium 141 mmol/L (136-145)
[2024-04-24 05:20] LABS: Bilirubin, Total 0.3 mg/dL (0.2-1.0)
[2024-04-24 05:24] LABS: BUN/Creatinine Ratio 7.8 (10.0-20.0); Blood Urea Nitrogen < 5 mg/dL (9-23)
[2024-04-24] MEDS: SODIUM CHLOR 0.9% PF (SALINE LOCK) 10ML VIAL/SYR IV SCH (06:00)
[2024-04-24] MEDS: PANTOPRAZOLE 40 MG/10 ML VIAL INJ IV SCH (09:26)
[2024-04-24] MEDS: ACETAMINOPHEN 325 MG TAB PO PRN (09:27)
[2024-04-24] MEDS: SOD CHL 0.45% 500 ML IV ONE (17:15)
[2024-04-24] MEDS ORDERED: CYCLOBENZAPRINE HCL 10 MG TAB PO PRN (17:15)
[2024-04-25] VITALS (8 sets, daily range): BP systolic 98–125; BP diastolic 60–86; PULSE 74–107; RESP 14–20; TEMP 98.2–99.3; O2SAT 98–100
[2024-04-25 07:02] LABS: Basophils # (auto) 0.1 10 ^3/uL (0-0.2); Eosinophils # (auto) 0.1 10 ^3/uL (0-0.8); Hemoglobin 9.6 g/dL (12.2-16.2); Mean Corpuscular Hemoglobin 25.8 pg (28.0-32.0); Monocytes # (auto) 0.7 10 ^3/uL (0-1.3); Red Blood Cells 3.71 10^6/uL (4.0-5.20)
[2024-04-25 07:06] LABS: Basophils % (auto) 1.3 % (0.0-2.0); Eosinophils % (auto) 1.6 % (0.0-7.0); Hematocrit 28.9 % (36.0-46.0); Lymphocytes # (auto) 1.3 10 ^3/uL (0.4-5.4); Lymphocytes % (auto) 25.2 % (10.0-50.0); Mean Corpuscular Hgb Conc. 33.2 g/dL (32.0-36.0); Mean Corpuscular Volume 77.8 fL (80.0-100.0); Monocytes % (auto) 13.5 % (0.0-12.0); Neutrophils % (auto) 58.4 % (37.0-80.0); Nucleated Red Blood Cells % 0.1 %; Platelet Count (auto) 429 10^3/uL (140-450); Red Cell Distribution Width 15.4 % (11.8-14.3); White Blood Cell 5.1 10^3/uL (4.4-10.8)
[2024-04-25] MEDS ORDERED: SODIUM CHLORIDE LOCK 10 ML ONE (10:48)
[2024-04-25] MEDS ORDERED: diphenhdrAMINE HCL 50 MG/1 ML VL ONE (10:49)
[2024-04-25] MEDS: LIDOCAINE VISCOUS 2% 15ML UD ONE (12:44)
[2024-04-25] MEDS: fentaNYL CITRATE 100 MCG/2 ML VL ONE (12:46)
[2024-04-25] MEDS: MIDAZOLAM HCL 5 MG/ML-1ML VIAL ONE (12:46)
[2024-04-26] VITALS (7 sets, daily range): BP systolic 89–122; BP diastolic 51–81; PULSE 79–95; RESP 18–20; TEMP 97.4–98.4; O2SAT 98–100
[2024-04-26] MEDS: MELATONIN 5 MG TAB PO ONE ×2 (00:53→23:06)
[2024-04-26 13:00] LABS: % Iron Saturation 7.2 % (15-50)
[2024-04-26 13:10] LABS: Ferritin 36.7 ng/mL (10-291)
[2024-04-26] MEDS: DOCUSATE SOD 100 MG CAP PO PRN (22:33)
[2024-04-27] VITALS (8 sets, daily range): BP systolic 95–118; BP diastolic 47–79; PULSE 68–98; RESP 15–20; TEMP 97.6–98.8; O2SAT 93–100
[2024-04-27] MEDS: PANTOPRAZOLE 40 MG/10 ML VIAL INJ IV SCH (11:51)
[2024-04-27 12:47] LABS: Cancer Antigen (CA) 125 7.2 U/mL (0.0-38.1)
[2024-04-27] MEDS: MELATONIN 5 MG TAB PO ONE (23:13)
[2024-04-28] VITALS (7 sets, daily range): BP systolic 97–110; BP diastolic 67–75; PULSE 67–92; RESP 16–19; TEMP 98.2–98.9; O2SAT 99–100
[2024-04-28] MEDS: FERROUS SULFATE 325mg EC TAB PO SCH (10:00)
[2024-04-29] VITALS (8 sets, daily range): BP systolic 94–126; BP diastolic 60–88; PULSE 71–103; RESP 16–18; TEMP 98.2–98.8; O2SAT 97–100
[2024-04-29] MEDS ORDERED: MELATONIN 5 MG TAB PO ONE (00:30)
[2024-04-29 08:06] LABS: Rheumatoid Arthritis Factor <10.0 IU/mL (<14.0)
[2024-04-29 12:07] LABS: Anti-Centromere B Antibody <0.2 AI (0.0-0.9); Anti-Jo-1 Antibody <0.2 AI (0.0-0.9); Anti-dsDNA Antibody 1 IU/mL (0-9); Antichromatin Antibody <0.2 AI (0.0-0.9); Antiscleroderma-70 Antibody <0.2 AI (0.0-0.9); RNP Antibody <0.2 AI (0.0-0.9); Sjogren's Anti-SS-A Antibody <0.2 AI (0.0-0.9); Sjogren's Anti-SS-B Antibody <0.2 AI (0.0-0.9); Smith Antibody <0.2 AI (0.0-0.9)
[2024-04-29] MEDS: SUCRALFATE 1 GM/10 ML ORAL SUSP PO SCH (21:44)
[2024-04-30] VITALS (7 sets, daily range): BP systolic 105–128; BP diastolic 66–82; PULSE 77–103; RESP 16–87; TEMP 97.8–98.5; O2SAT 95–100
[2024-04-30 12:07] LABS: CCP IgG/IgA Antibody 54 units (0-19)
[2024-04-30] MEDS: SULFAMETHOX W/TRIMETH(800/160MG) DS TAB PO ONE (18:00)
[2024-05-01] VITALS (8 sets, daily range): BP systolic 103–117; BP diastolic 64–75; PULSE 74–94; RESP 18–89; TEMP 97.7–98.3; O2SAT 98–100
[2024-05-01] MEDS: SULFAMETHOX W/TRIMETH(800/160MG) DS TAB PO SCH (06:00)
[2024-05-01 07:34] LABS: Basophils # (auto) 0 10 ^3/uL (0-0.2); Eosinophils # (auto) 0.3 10 ^3/uL (0-0.8); Hemoglobin 9.6 g/dL (12.2-16.2); Monocytes # (auto) 0.7 10 ^3/uL (0-1.3); Nucleated Red Blood Cells % 0.1 %
[2024-05-01 07:36] LABS: Basophils % (auto) 0.3 % (0.0-2.0); Eosinophils % (auto) 6.3 % (0.0-7.0); Hematocrit 29.8 % (36.0-46.0); Lymphocytes # (auto) 1.7 10 ^3/uL (0.4-5.4); Lymphocytes % (auto) 33.7 % (10.0-50.0); Mean Corpuscular Hemoglobin 25.3 pg (28.0-32.0); Mean Corpuscular Hgb Conc. 32.3 g/dL (32.0-36.0); Mean Corpuscular Volume 78.4 fL (80.0-100.0); Monocytes % (auto) 13.6 % (0.0-12.0); Neutrophils # (auto) 2.3 10 ^3/uL (1.6-8.6); Neutrophils % (auto) 46.1 % (37.0-80.0); Platelet Count (auto) 393 10^3/uL (140-450); Red Blood Cells 3.81 10^6/uL (4.0-5.20); Red Cell Distribution Width 15.7 % (11.8-14.3)
[2024-05-01 08:18] LABS: Albumin 3.9 g/dL (3.2-4.8); Alkaline Phosphatase 69 U/L (46-116); Anion Gap 3 (5-15); Aspartate Aminotransferase 11 U/L (13-40); BUN/Creatinine Ratio 9.3 (10.0-20.0); Bilirubin, Total 0.3 mg/dL (0.2-1.0); Blood Urea Nitrogen 7 mg/dL (9-23); Calcium 9.5 mg/dL (8.7-10.4); Carbon Dioxide 28 mmol/L (20-30); Chloride 106 mmol/L (98-107); Glucose 99 mg/dL (74-106); Potassium 3.8 mmol/L (3.5-5.1); Sodium 137 mmol/L (136-145); Total Protein 6.5 g/dL (5.7-8.2)
[2024-05-01 08:19] LABS: Alanine Aminotransferase < 9 U/L (7-40)
[2024-05-02 01:38] LABS: COVID19 ANTIGEN SOFIA FIA NEGATIVE (NEGATIVE)
[2024-05-02 05:00] VITALS: BP 115/73; PULSE 94; RESP 16; TEMP 98.3; O2SAT 99
[2024-05-02 07:40] LABS: Basophils # (auto) 0.1 10 ^3/uL (0-0.2); Basophils % (auto) 1.3 % (0.0-2.0); Eosinophils # (auto) 0.3 10 ^3/uL (0-0.8); Hematocrit 28.7 % (36.0-46.0); Hemoglobin 9.2 g/dL (12.2-16.2); Lymphocytes # (auto) 1.6 10 ^3/uL (0.4-5.4); Lymphocytes % (auto) 28.7 % (10.0-50.0); Mean Corpuscular Hemoglobin 25.3 pg (28.0-32.0); Mean Corpuscular Hgb Conc. 32.2 g/dL (32.0-36.0); Mean Corpuscular Volume 78.6 fL (80.0-100.0); Monocytes # (auto) 0.7 10 ^3/uL (0-1.3); Monocytes % (auto) 12.6 % (0.0-12.0); Neutrophils % (auto) 52.4 % (37.0-80.0); Nucleated Red Blood Cells % 0.1 %; Platelet Count (auto) 360 10^3/uL (140-450); Red Blood Cells 3.65 10^6/uL (4.0-5.20); Red Cell Distribution Width 15.5 % (11.8-14.3); White Blood Cell 5.7 10^3/uL (4.4-10.8)
[2024-05-02 08:00] VITALS: PULSE 79; PULSE 98; RESP 18; O2SAT 98
[2024-05-02 08:06] LABS: Albumin 3.7 g/dL (3.2-4.8); Alkaline Phosphatase 63 U/L (46-116); Anion Gap 2 (5-15); Aspartate Aminotransferase 11 U/L (13-40); BUN/Creatinine Ratio 9.2 (10.0-20.0); Bilirubin, Total 0.4 mg/dL (0.2-1.0); Blood Urea Nitrogen 7 mg/dL (9-23); Calcium 9.5 mg/dL (8.7-10.4); Carbon Dioxide 28 mmol/L (20-30); Chloride 107 mmol/L (98-107); Glucose 93 mg/dL (74-106); Sodium 137 mmol/L (136-145); Total Protein 6.2 g/dL (5.7-8.2)
[2024-05-02 08:21] LABS: Alanine Aminotransferase < 9 U/L (7-40)
[2024-05-02 09:00] VITALS: BP 100/64; PULSE 88; RESP 17; TEMP 98.7; O2SAT 100
[2024-05-02 13:00] VITALS: BP 106/70; PULSE 83; RESP 17; TEMP 98.5; O2SAT 100
[2024-05-02 17:00] VITALS: BP 103/63; PULSE 77; RESP 17; TEMP 98.7; O2SAT 99
[2024-05-02] MEDS ORDERED: PANTOPRAZOLE 40 MG TAB PO SCH (17:00)
[2024-05-02] MEDS: levoFLOXacin 500 MG TAB PO ONE (18:00)
[2024-05-02] MEDS: metroNIDAZOLE 500 MG TAB PO ONE (18:00)
[2024-05-02] MEDS: OMEPRAZOLE-SOD BICARB 20 MG POWDER PO SCH (18:01)
[2024-05-02] MEDS: BISMUTH SUBSALICYLATE 262MG/15ml ORAL Susp PO SCH (18:30)
[2024-05-02 20:00] VITALS: PULSE 77; PULSE 79; RESP 18; O2SAT 98
[2024-05-02] MEDS: metroNIDAZOLE 500 MG TAB PO SCH (21:29)
[2024-05-03 04:00] VITALS: BP 98/69; PULSE 83; RESP 18; TEMP 97.6; O2SAT 97
[2024-05-03 07:04] LABS: Eosinophils # (auto) 0.2 10 ^3/uL (0-0.8); Hemoglobin 9.4 g/dL (12.2-16.2); Lymphocytes # (auto) 1.5 10 ^3/uL (0.4-5.4); Monocytes # (auto) 0.7 10 ^3/uL (0-1.3)
[2024-05-03 07:06] LABS: Basophils # (auto) 0.1 10 ^3/uL (0-0.2); Basophils % (auto) 1.1 % (0.0-2.0); Eosinophils % (auto) 3.3 % (0.0-7.0); Hematocrit 29.2 % (36.0-46.0); Lymphocytes % (auto) 28.4 % (10.0-50.0); Mean Corpuscular Hemoglobin 25.5 pg (28.0-32.0); Mean Corpuscular Hgb Conc. 32.4 g/dL (32.0-36.0); Mean Corpuscular Volume 78.9 fL (80.0-100.0); Monocytes % (auto) 14.1 % (0.0-12.0); Neutrophils # (auto) 2.8 10 ^3/uL (1.6-8.6); Neutrophils % (auto) 53.1 % (37.0-80.0); Nucleated Red Blood Cells % 0.2 %; Platelet Count (auto) 343 10^3/uL (140-450); Red Cell Distribution Width 15.7 % (11.8-14.3); White Blood Cell 5.2 10^3/uL (4.4-10.8)
[2024-05-03 08:00] VITALS: BP 107/66; PULSE 90; PULSE 96; RESP 18; TEMP 97.8; O2SAT 99
[2024-05-03] MEDS: levoFLOXacin 250 MG TAB PO SCH (10:05)
[2024-05-03 12:00] VITALS: BP 101/67; PULSE 89; RESP 18; TEMP 98; O2SAT 98
[2024-05-03] MEDS ORDERED: OMEP1POW PO ×2 (12:20→14:26)
[2024-05-03] MEDS ORDERED: FER325T PO ×2 (12:20→14:26)
[2024-05-03] MEDS ORDERED: CYCL-611 PO ×2 (12:20→14:26)
[2024-05-03] MEDS ORDERED: DOCU-265 PO ×2 (12:20→14:26)
[2024-05-03] MEDS ORDERED: MET500T PO ×2 (12:20→14:26)
[2024-05-03] MEDS ORDERED: [UNRECOGNIZED DRUG - CODE] PO ×2 (12:20→14:26)
[2024-05-03] MEDS ORDERED: LEVO250T58 PO ×2 (12:20→14:26)
[2024-05-03] MEDS ORDERED: ZOFR4T PO (14:26)
[2024-05-03] MEDS ORDERED: MECL-90 PO (14:26)
== END 2024-05-03 16:30 | disposition home or self-care (01) | DRG 241 ==
LOC: ER 17:50 → TELE 23:56 → TELE-EAST 04-24 04:55
PROVIDERS: ADMIT Nurse Practitioner Family; ATTEND Internal Medicine
PROC: 0DB68ZX Excision of Stomach, Via Natural or Artificial Opening Endoscopic, Diagnostic (ICD-10-PCS; 2024-04-25)
PROC: 0DB38ZX Excision of Lower Esophagus, Via Natural or Artificial Opening Endoscopic, Diagnostic (ICD-10-PCS; 2024-04-25)
PROC: 0DB98ZX Excision of Duodenum, Via Natural or Artificial Opening Endoscopic, Diagnostic (ICD-10-PCS; principal; 2024-04-25 12:40)
DX: K29.70 Gastritis, unspecified, without bleeding (principal); B96.89 Other specified bacterial agents as the cause of diseases classified elsewhere; J02.8 Acute pharyngitis due to other specified organisms; K29.80 Duodenitis without bleeding; M79.7 Fibromyalgia; D50.9 Iron deficiency anemia, unspecified; K21.00 Gastro-esophageal reflux disease with esophagitis, without bleeding; E03.9 Hypothyroidism, unspecified; Z20.822 Contact with and (suspected) exposure to COVID-19; F41.9 Anxiety disorder, unspecified; K44.9 Diaphragmatic hernia without obstruction or gangrene; M06.9 Rheumatoid arthritis, unspecified; R73.03 Prediabetes; R44.2 Other hallucinations; M19.09 Primary osteoarthritis, other specified site; K59.00 Constipation, unspecified; Z83.2 Family history of diseases of the blood and blood-forming organs and certain disorders involving the immune mechanism; Z86.19 Personal history of other infectious and parasitic diseases; Z87.11 Personal history of peptic ulcer disease; Z79.899 Other long term (current) drug therapy
CPT/HCPCS: 36415; 43239; 70450; 71250; 74176; 80053; 80307; 81001; 81025; 82105; 82378; 82607; 82728; 82962; 83516; 83540; 83550; 83615; 83690; 84443; 84481; 84702; 85025; 86141; 86200; 86225; 86235; 86301; 86304; 86431; 86703; 87070; 87077; 87186; 87205; 87426; 93005; 96372; G0378; J2250; J2470

== ENCOUNTER 2024-05-06 18:59 | Inpatient (IN) | payer MEDICAID ==
[~2024-05-06] VITALS: Ht 162.6 cm; Wt 61.7 kg
[~2024-05-06 18:59] MED LIST changes: +CYCL-611 PO; +DOCU-265 PO; +FER325T PO; +LEVO250T58 PO; +MECL-90 PO; +MET500T PO; +OMEP1POW PO; -PANT40TA2 PO; +ZOFR4T PO; +[UNRECOGNIZED DRUG - CODE] PO
[2024-05-06 20:21] LABS: Basophils # (auto) 0.1 10 ^3/uL (0-0.2); Eosinophils # (auto) 0.1 10 ^3/uL (0-0.8); Hemoglobin 10.8 g/dL (12.2-16.2); Lymphocytes # (auto) 1.9 10 ^3/uL (0.4-5.4); Mean Corpuscular Hemoglobin 26.4 pg (28.0-32.0); Monocytes # (auto) 0.7 10 ^3/uL (0-1.3); Nucleated Red Blood Cells % 0.1 %; White Blood Cell 5.8 10^3/uL (4.4-10.8)
[2024-05-06 20:24] LABS: Basophils % (auto) 0.9 % (0.0-2.0); Eosinophils % (auto) 1.9 % (0.0-7.0); Lymphocytes % (auto) 32.7 % (10.0-50.0); Mean Corpuscular Hgb Conc. 32.7 g/dL (32.0-36.0); Mean Corpuscular Volume 80.7 fL (80.0-100.0); Monocytes % (auto) 11.2 % (0.0-12.0); Neutrophils # (auto) 3.1 10 ^3/uL (1.6-8.6); Neutrophils % (auto) 53.3 % (37.0-80.0); Platelet Count (auto) 333 10^3/uL (140-450); Red Blood Cells 4.09 10^6/uL (4.0-5.20); Red Cell Distribution Width 17.8 % (11.8-14.3)
[2024-05-06 20:26] LABS: Urine Bacteria FEW /hpf (None Seen); Urine Blood Negative /uL (Negative); Urine Clarity Clear (Clear); Urine Color Yellow (Yellow); Urine Mucus FEW (None Seen); Urine Protein, UAD Negative (Negative); Urine Specific Gravity 1.018 (1.001-1.035); Urine Urobilinogen Normal (Negative); Urine WBC 1 /hpf (0 - 5); Urine pH 5.5 (5.0-9.0)
[2024-05-06 20:40] LABS: Alanine Aminotransferase 10 U/L (7-40); Albumin 4.3 g/dL (3.2-4.8); Alkaline Phosphatase 70 U/L (46-116); Anion Gap 8 (5-15); Aspartate Aminotransferase 15 U/L (13-40); Bilirubin, Total 0.4 mg/dL (0.2-1.0); Calcium 9.8 mg/dL (8.7-10.4); Carbon Dioxide 23 mmol/L (20-30); Chloride 106 mmol/L (98-107); Glucose 92 mg/dL (74-106); Potassium 3.9 mmol/L (3.5-5.1); Sodium 137 mmol/L (136-145); Total Protein 7.7 g/dL (5.7-8.2)
[2024-05-06 20:42] LABS: BUN/Creatinine Ratio 6.5 (10.0-20.0); Blood Urea Nitrogen < 5 mg/dL (9-23)
[2024-05-06] MEDS: MECLIZINE HCL 25 MG TAB PO ONE (22:00)
[2024-05-06] MEDS: SODIUM CHLORIDE 0.9% 1,000 ML IV ONE (22:00)
[2024-05-06] MEDS: PANTOPRAZOLE 40 MG/10 ML VIAL INJ IV ONE (22:12)
[2024-05-06 23:00] VITALS: PULSE 91; RESP 13; O2SAT 100
[2024-05-06] MEDS ORDERED: hydrALAZINE HCL 20 MG/ML VL IV PRN (23:15)
[2024-05-06] MEDS ORDERED: MECLIZINE HCL 25 MG TAB PO PRN (23:15)
[2024-05-06] MEDS ORDERED: HYDROcodone-ACET 5/325MG TAB PO PRN (23:15)
[2024-05-06] MEDS ORDERED: ACETAMINOPHEN 325 MG TAB PO PRN (23:15)
[2024-05-06] MEDS ORDERED: ONDANSETRON HCL 4 MG/2 ML VIAL IV PRN (23:15)
[2024-05-06] MEDS: cefTRIAXone 1GM/50ML D5W 50 ML IV ONE (23:33)
[2024-05-06] MEDS ORDERED: MORPHINE SULFATE INJ 2 MG/ml SYRG IV PRN (23:45)
[2024-05-06] MEDS ORDERED: NITROGLYCERIN 0.4 MG SL TAB SL PRN (23:45)
[2024-05-07] VITALS (10 sets, daily range): BP systolic 95–132; BP diastolic 59–82; PULSE 82–102; RESP 16–18; TEMP 97.9–98.6; O2SAT 96–100
[2024-05-07 05:55] LABS: Eosinophils # (auto) 0.2 10 ^3/uL (0-0.8); Eosinophils % (auto) 3.8 % (0.0-7.0); Hemoglobin 8.9 g/dL (12.2-16.2); Lymphocytes # (auto) 1.8 10 ^3/uL (0.4-5.4); Monocytes # (auto) 0.7 10 ^3/uL (0-1.3); Nucleated Red Blood Cells % 0.1 %
[2024-05-07 05:57] LABS: Basophils # (auto) 0 10 ^3/uL (0-0.2); Hematocrit 27.2 % (36.0-46.0); Lymphocytes % (auto) 37.8 % (10.0-50.0); Mean Corpuscular Hemoglobin 26.3 pg (28.0-32.0); Mean Corpuscular Hgb Conc. 32.8 g/dL (32.0-36.0); Mean Corpuscular Volume 80.2 fL (80.0-100.0); Monocytes % (auto) 14.6 % (0.0-12.0); Neutrophils % (auto) 42.8 % (37.0-80.0); Platelet Count (auto) 255 10^3/uL (140-450); Red Blood Cells 3.39 10^6/uL (4.0-5.20); Red Cell Distribution Width 17.3 % (11.8-14.3); White Blood Cell 4.7 10^3/uL (4.4-10.8)
[2024-05-07 06:17] LABS: Albumin 3.3 g/dL (3.2-4.8); Alkaline Phosphatase 53 U/L (46-116); Anion Gap 6 (5-15); Aspartate Aminotransferase 12 U/L (13-40); Calcium 8.9 mg/dL (8.7-10.4); Carbon Dioxide 22 mmol/L (20-30); Chloride 111 mmol/L (98-107); Glucose 85 mg/dL (74-106); Sodium 139 mmol/L (136-145)
[2024-05-07 06:18] LABS: Bilirubin, Total 0.4 mg/dL (0.2-1.0); Total Protein 5.8 g/dL (5.7-8.2)
[2024-05-07 06:28] LABS: Alanine Aminotransferase < 9 U/L (7-40); BUN/Creatinine Ratio 6.8 (10.0-20.0); Blood Urea Nitrogen < 5 mg/dL (9-23)
[2024-05-07] MEDS: DOCUSATE SOD 100 MG CAP PO PRN (10:37)
[2024-05-07] MEDS: PANTOPRAZOLE 40 MG/10 ML VIAL INJ IV SCH (10:38)
[2024-05-07] MEDS ORDERED: cefTRIAXone 1GM/50ML D5W 50 ML IV SCH (21:00)
== END 2024-05-07 17:18 | disposition home or self-care (01) | DRG 241 ==
LOC: ER 18:59 → TELE 23:36 → TELE-WESTW 05-07 02:23
PROVIDERS: ADMIT Nurse Practitioner Family; ATTEND Nurse Practitioner Family
DX: K29.60 Other gastritis without bleeding (principal); K26.9 Duodenal ulcer, unspecified as acute or chronic, without hemorrhage or perforation; F41.1 Generalized anxiety disorder; R42 Dizziness and giddiness; M79.7 Fibromyalgia; M06.9 Rheumatoid arthritis, unspecified; K21.9 Gastro-esophageal reflux disease without esophagitis; N39.0 Urinary tract infection, site not specified; Z88.8 Allergy status to other drugs, medicaments and biological substances; Z83.2 Family history of diseases of the blood and blood-forming organs and certain disorders involving the immune mechanism; K44.9 Diaphragmatic hernia without obstruction or gangrene; B96.81 Helicobacter pylori [H. pylori] as the cause of diseases classified elsewhere
CPT/HCPCS: 36415; 70450; 74176; 80053; 81001; 83690; 84484; 85025; 87081; 87086; 93005; 96361; 96374; G0378; J2470

== ENCOUNTER 2024-05-07 17:31 | Emergency (ER) | payer MEDICAID ==
[~2024-05-07] VITALS: Ht 167.6 cm; Wt 62.0 kg
[2024-05-07 17:59] LABS: Basophils # (auto) 0.1 10 ^3/uL (0-0.2); Eosinophils % (auto) 2.6 % (0.0-7.0); Hemoglobin 10.7 g/dL (12.2-16.2); Lymphocytes # (auto) 1.8 10 ^3/uL (0.4-5.4); Mean Corpuscular Hemoglobin 25.6 pg (28.0-32.0); Monocytes # (auto) 0.7 10 ^3/uL (0-1.3); Nucleated Red Blood Cells % 0.1 %
[2024-05-07 18:00] LABS: Eosinophils # (auto) 0.2 10 ^3/uL (0-0.8); Hematocrit 33.6 % (36.0-46.0); Lymphocytes % (auto) 31.7 % (10.0-50.0); Mean Corpuscular Hgb Conc. 31.9 g/dL (32.0-36.0); Mean Corpuscular Volume 80.2 fL (80.0-100.0); Monocytes % (auto) 12.4 % (0.0-12.0); Neutrophils % (auto) 52.3 % (37.0-80.0); Platelet Count (auto) 344 10^3/uL (140-450); Red Blood Cells 4.19 10^6/uL (4.0-5.20); Red Cell Distribution Width 18.4 % (11.8-14.3); White Blood Cell 5.8 10^3/uL (4.4-10.8)
[2024-05-07 18:02] LABS: Urine Bacteria FEW /hpf (None Seen); Urine Blood Negative /uL (Negative); Urine Clarity Clear (Clear); Urine Color Colorless (Yellow); Urine Protein, UAD Negative (Negative); Urine Specific Gravity 1.002 (1.001-1.035); Urine Urobilinogen Normal (Negative); Urine WBC 2 /hpf (0 - 5); Urine pH 6.5 (5.0-9.0)
[2024-05-07 18:22] LABS: Albumin 4.3 g/dL (3.2-4.8); Alkaline Phosphatase 67 U/L (46-116); Anion Gap 6 (5-15); Aspartate Aminotransferase 13 U/L (13-40); BUN/Creatinine Ratio 7.1 (10.0-20.0); Blood Urea Nitrogen 6 mg/dL (9-23); Calcium 9.4 mg/dL (8.7-10.4); Carbon Dioxide 23 mmol/L (20-30); Chloride 109 mmol/L (98-107); Glucose 107 mg/dL (74-106); Magnesium 2.1 mg/dL (1.6-2.6); Potassium 3.9 mmol/L (3.5-5.1); Sodium 138 mmol/L (136-145)
[2024-05-07 18:23] LABS: Alanine Aminotransferase < 9 U/L (7-40); Bilirubin, Total 0.4 mg/dL (0.2-1.0); Total Protein 7.3 g/dL (5.7-8.2)
[2024-05-07] MEDS: PANTOPRAZOLE 40 MG/10 ML VIAL INJ IV ONE (19:59)
[2024-05-07 21:10] VITALS: TEMP 98.1
[2024-05-07] MEDS ORDERED: MECLIZINE HCL 25 MG TAB PO PRN (21:45)
[2024-05-07] MEDS ORDERED: DOCUSATE SOD 100 MG CAP PO PRN (21:45)
[2024-05-07] MEDS ORDERED: hydrALAZINE HCL 20 MG/ML VL IV PRN (21:45)
[2024-05-07] MEDS ORDERED: ACETAMINOPHEN 325 MG TAB PO PRN (21:45)
[2024-05-07] MEDS ORDERED: ONDANSETRON HCL 4 MG/2 ML VIAL IV PRN (21:45)
[2024-05-07] MEDS ORDERED: HYDROcodone-ACET 5/325MG TAB PO PRN (21:45)
[2024-05-07] MEDS ORDERED: METOPROLOL TARTRATE 25 MG TAB PO SCH (22:00)
[2024-05-07] MEDS: METOPROLOL TARTRATE 25 MG TAB PO SCH (22:00)
[2024-05-07] MEDS: SODIUM CHLOR 0.9% PF (SALINE LOCK) 10ML VIAL/SYR IV SCH (22:24)
[2024-05-07] MEDS ORDERED: NITROGLYCERIN 0.4 MG SL TAB SL PRN (23:00)
[2024-05-07] MEDS ORDERED: MORPHINE SULFATE INJ 2 MG/ml SYRG IV PRN (23:00)
[2024-05-08 06:08] LABS: Basophils # (auto) 0 10 ^3/uL (0-0.2); Lymphocytes # (auto) 1.8 10 ^3/uL (0.4-5.4); Mean Corpuscular Hemoglobin 26.3 pg (28.0-32.0)
[2024-05-08 06:12] LABS: Eosinophils # (auto) 0.1 10 ^3/uL (0-0.8); Eosinophils % (auto) 3.2 % (0.0-7.0); Hematocrit 29.9 % (36.0-46.0); Hemoglobin 9.8 g/dL (12.2-16.2); Lymphocytes % (auto) 39.3 % (10.0-50.0); Mean Corpuscular Hgb Conc. 32.7 g/dL (32.0-36.0); Mean Corpuscular Volume 80.3 fL (80.0-100.0); Monocytes # (auto) 0.6 10 ^3/uL (0-1.3); Monocytes % (auto) 13.4 % (0.0-12.0); Neutrophils % (auto) 43.1 % (37.0-80.0); Platelet Count (auto) 287 10^3/uL (140-450); Red Blood Cells 3.72 10^6/uL (4.0-5.20); Red Cell Distribution Width 18.2 % (11.8-14.3); White Blood Cell 4.6 10^3/uL (4.4-10.8)
[2024-05-08 06:34] LABS: Albumin 3.7 g/dL (3.2-4.8); Alkaline Phosphatase 58 U/L (46-116); Anion Gap 7 (5-15); Aspartate Aminotransferase 11 U/L (13-40); BUN/Creatinine Ratio 7.4 (10.0-20.0); Bilirubin, Total 0.5 mg/dL (0.2-1.0); Blood Urea Nitrogen 6 mg/dL (9-23); Calcium 9.5 mg/dL (8.7-10.4); Carbon Dioxide 23 mmol/L (20-30); Chloride 109 mmol/L (98-107); Glucose 87 mg/dL (74-106); Potassium 4.1 mmol/L (3.5-5.1); Sodium 139 mmol/L (136-145)
[2024-05-08 06:35] LABS: Total Protein 6.3 g/dL (5.7-8.2)
[2024-05-08 06:50] LABS: Alanine Aminotransferase < 9 U/L (7-40)
[2024-05-08 07:42] VITALS: PULSE 91; RESP 16; O2SAT 100
[2024-05-08] MEDS: FERROUS SULFATE 325mg EC TAB PO SCH (08:33)
[2024-05-08 10:00] VITALS: O2SAT 94
[2024-05-08] MEDS: PANTOPRAZOLE 40 MG/10 ML VIAL INJ IV SCH (10:05)
[2024-05-08 12:00] VITALS: BP 100/62; PULSE 72; RESP 14
[2024-05-08] MEDS: METOPROLOL TARTRATE 1MG/1ML-5ML VIAL IV ONE (13:16)
[2024-05-25] MEDS ORDERED: AMOX1CAP87 PO (08:10)
== END 2024-05-08 13:29 | disposition home or self-care (01) ==
LOC: ER 17:31 → UNDOADMIN 22:48 → TELE 22:48
DX: R42 Dizziness and giddiness (principal); R53.1 Weakness; B96.81 Helicobacter pylori [H. pylori] as the cause of diseases classified elsewhere; F41.9 Anxiety disorder, unspecified; M19.90 Unspecified osteoarthritis, unspecified site; K21.9 Gastro-esophageal reflux disease without esophagitis; Z86.2 Personal history of diseases of the blood and blood-forming organs and certain disorders involving the immune mechanism; Z98.890 Other specified postprocedural states
CPT/HCPCS: 36415; 71045; 80053; 81001; 83735; 83880; 84484; 85025; 93005; 96374; 96376; 99285; J2470; G0378

== ENCOUNTER 2024-05-18 16:12 | Inpatient (IN) | payer MEDICAID ==
[~2024-05-18] VITALS: Ht 167.6 cm; Wt 55.4 kg
[2024-05-18 17:00] LABS: Basophils # (auto) 0 10 ^3/uL (0-0.2); Basophils % (auto) 0.4 % (0.0-2.0); Eosinophils # (auto) 0 10 ^3/uL (0-0.8); Eosinophils % (auto) 0.1 % (0.0-7.0); Hematocrit 35.2 % (36.0-46.0); Hemoglobin 11.4 g/dL (12.2-16.2); Lymphocytes # (auto) 0.5 10 ^3/uL (0.4-5.4); Lymphocytes % (auto) 9.1 % (10.0-50.0); Mean Corpuscular Hemoglobin 25.8 pg (28.0-32.0); Mean Corpuscular Hgb Conc. 32.4 g/dL (32.0-36.0); Mean Corpuscular Volume 79.7 fL (80.0-100.0); Monocytes # (auto) 0.2 10 ^3/uL (0-1.3); Neutrophils # (auto) 4.8 10 ^3/uL (1.6-8.6); Neutrophils % (auto) 87.4 % (37.0-80.0); Nucleated Red Blood Cells % 0.1 %; Platelet Count (auto) 540 10^3/uL (140-450); Red Blood Cells 4.42 10^6/uL (4.0-5.20); Red Cell Distribution Width 18.6 % (11.8-14.3); White Blood Cell 5.5 10^3/uL (4.4-10.8)
[2024-05-18 17:28] LABS: INR 1.07 (0.9-1.15); Partial Thromboplastin Time 23.6 SEC (24.5-34.5); Prothrombin Time 11.3 sec (9.3-11.8)
[2024-05-18 17:33] LABS: Alanine Aminotransferase 10 U/L (7-40); Alkaline Phosphatase 72 U/L (46-116); Anion Gap 7 (5-15); Aspartate Aminotransferase 14 U/L (13-40); BUN/Creatinine Ratio 9.7 (10.0-20.0); Bilirubin, Total 0.4 mg/dL (0.2-1.0); Blood Urea Nitrogen 7 mg/dL (9-23); Calcium 10.6 mg/dL (8.7-10.4); Carbon Dioxide 23 mmol/L (20-30); Chloride 106 mmol/L (98-107); Glucose 114 mg/dL (74-106); Magnesium 2.1 mg/dL (1.6-2.6); Potassium 4.3 mmol/L (3.5-5.1); Sodium 136 mmol/L (136-145); Total Protein 8.4 g/dL (5.7-8.2)
[2024-05-18] MEDS: IOHEXOL 350 MG/ML 100ML IJ ONE ×2 (20:49→21:26)
[2024-05-18] MEDS: SODIUM CHLORIDE 0.9% 1,000 ML IV ONE (21:58)
[2024-05-18] MEDS: PANTOPRAZOLE 40 MG/10 ML VIAL INJ IV ONE (22:07)
[2024-05-18] MEDS: MECLIZINE HCL 25 MG TAB PO ONE (23:37)
[2024-05-18] MEDS: PIPERACILLIN-TAZO 4.5GM 100 ML IV ONE (23:37)
[2024-05-19] MEDS ORDERED: ONDANSETRON HCL 4 MG/2 ML VIAL IV PRN (04:30)
[2024-05-19] MEDS ORDERED: ACETAMINOPHEN 325 MG TAB PO PRN (04:30)
[2024-05-19] MEDS ORDERED: TEMAZEPAM 15 MG CAP PO PRN (04:30)
[2024-05-19] MEDS ORDERED: HYDROcodone-ACET 5/325MG TAB PO PRN (04:30)
[2024-05-19] MEDS ORDERED: MECLIZINE HCL 25 MG TAB PO PRN (04:30)
[2024-05-19] MEDS: metroNIDAZOLE 500MG/100ML 100 ML IV SCH (06:00)
[2024-05-19] MEDS: PANTOPRAZOLE 40 MG TAB PO SCH (07:50)
[2024-05-19 11:56] VITALS: BP 140/69; PULSE 75; RESP 16; TEMP 98; O2SAT 96
[2024-05-25] MEDS ORDERED: AMOX1CAP87 PO (08:10)
== END 2024-05-19 14:30 | disposition home or self-care (01) | DRG 351 ==
LOC: ER 16:12 → EDBD 16:12 → OVERFLOW 05-19 04:25
PROVIDERS: ADMIT Nurse Practitioner; ATTEND Internal Medicine
DX: M79.7 Fibromyalgia (principal); E05.90 Thyrotoxicosis, unspecified without thyrotoxic crisis or storm; K52.9 Noninfective gastroenteritis and colitis, unspecified; K21.9 Gastro-esophageal reflux disease without esophagitis; Z83.2 Family history of diseases of the blood and blood-forming organs and certain disorders involving the immune mechanism; Z79.899 Other long term (current) drug therapy
CPT/HCPCS: 36415; 70551; 71045; 71275; 80053; 83690; 83735; 83880; 84439; 84443; 84481; 84484; 84702; 85025; 85379; 85610; 85730; 93005; 96361; 96374; G0378; J2470; J2543

== ENCOUNTER 2024-06-05 14:28 | Emergency (ER) | payer MEDICAID ==
[~2024-06-05] VITALS: Ht 167.6 cm; Wt 55.5 kg
[~2024-06-05 14:28] MED LIST changes: +AMOX1CAP87 PO; -CYCL-611 PO; -IBUP-1456 PO; -LEVO250T58 PO; -LIDO2SOL26 MT; -MECL-90 PO; -MET500T PO
[2024-06-05 15:06] VITALS: BP 120/83; RESP 14; O2SAT 100
[2024-06-05 15:11] VITALS: PULSE 90
== END 2024-06-05 17:03 | disposition home or self-care (01) ==
LOC: ER 14:28
DX: R07.89 Other chest pain (principal); F41.9 Anxiety disorder, unspecified; M19.90 Unspecified osteoarthritis, unspecified site; K21.9 Gastro-esophageal reflux disease without esophagitis; Z86.2 Personal history of diseases of the blood and blood-forming organs and certain disorders involving the immune mechanism; Z98.890 Other specified postprocedural states; Z88.8 Allergy status to other drugs, medicaments and biological substances; Z79.899 Other long term (current) drug therapy
CPT/HCPCS: 71046; 93005

== ENCOUNTER 2024-06-11 03:23 | Emergency (ER) | payer MEDICAID ==
[~2024-06-11] VITALS: Ht 167.6 cm; Wt 55.0 kg
[2024-06-11 03:25] VITALS: BP 128/78; PULSE 89; RESP 19; O2SAT 100
[2024-06-11] MEDS: DexAMETHasone SOD PHOS 10MG/1ML VIAL INJ IM ONE (05:39)
[2024-06-11] MEDS: PANTOPRAZOLE 40 MG TAB PO ONE (05:39)
== END 2024-06-11 06:19 | disposition home or self-care (01) ==
LOC: ER 03:23
DX: K21.9 Gastro-esophageal reflux disease without esophagitis (principal); M19.90 Unspecified osteoarthritis, unspecified site; Z98.890 Other specified postprocedural states
CPT/HCPCS: 71046; 99283; J1100

== ENCOUNTER 2024-06-14 11:23 | Emergency (ER) | payer MEDICAID ==
[~2024-06-14] VITALS: Ht 170.2 cm; Wt 54.2 kg
[2024-06-14] MEDS: LIDOCAINE VISCOUS 2% 15ML UD PO ONE (11:45)
[2024-06-14] MEDS: DONNATAL 5ml ORAL Elix (BELLADONNA ALK-PHENOBARB) PO ONE (11:45)
[2024-06-14] MEDS: MAALOX PLUS or MAALOX 30 ML PO ONE (11:45)
[2024-06-14] MEDS: ONDANSETRON ODT 4 MG TAB PO ONE (11:45)
[2024-06-14 12:43] LABS: Basophils # (auto) 0 10 ^3/uL (0-0.2); Basophils % (auto) 1.2 % (0.0-2.0); Eosinophils # (auto) 0 10 ^3/uL (0-0.8); Eosinophils % (auto) 1.5 % (0.0-7.0); Hematocrit 29.9 % (36.0-46.0); Hemoglobin 9.5 g/dL (12.2-16.2); Lymphocytes # (auto) 1.3 10 ^3/uL (0.4-5.4); Lymphocytes % (auto) 40.4 % (10.0-50.0); Mean Corpuscular Volume 78.3 fL (80.0-100.0); Monocytes # (auto) 0.4 10 ^3/uL (0-1.3); Monocytes % (auto) 11.7 % (0.0-12.0); Neutrophils # (auto) 1.4 10 ^3/uL (1.6-8.6); Neutrophils % (auto) 45.2 % (37.0-80.0); Nucleated Red Blood Cells % 0.1 %; Platelet Count (auto) 414 10^3/uL (140-450); Red Blood Cells 3.82 10^6/uL (4.0-5.20); Red Cell Distribution Width 18.8 % (11.8-14.3); White Blood Cell 3.1 10^3/uL (4.4-10.8)
[2024-06-14 12:57] LABS: Albumin 4.4 g/dL (3.2-4.8); Alkaline Phosphatase 75 U/L (46-116); Anion Gap 5 (5-15); Aspartate Aminotransferase 9 U/L (13-40); Carbon Dioxide 26 mmol/L (20-31); Chloride 109 mmol/L (98-107); Glucose 100 mg/dL (74-106); Lipase 49 U/L (12-53); Sodium 140 mmol/L (136-145)
[2024-06-14 12:58] LABS: Bilirubin, Total 0.3 mg/dL (0.2-1.0); Total Protein 6.9 g/dL (5.7-8.2)
[2024-06-14 13:01] LABS: Alanine Aminotransferase < 9 U/L (7-40); BUN/Creatinine Ratio 6.7 (10.0-20.0); Blood Urea Nitrogen < 5 mg/dL (9-23)
[2024-06-14 13:24] LABS: Urine Bacteria FEW /hpf (None Seen); Urine Blood 2+ /uL (Negative); Urine Clarity Clear (Clear); Urine Color Colorless (Yellow); Urine Protein, UAD Negative (Negative); Urine Specific Gravity 1.005 (1.001-1.035); Urine Urobilinogen Normal (Negative); Urine WBC <1 /hpf (0 - 5); Urine pH 7.5 (5.0-9.0)
[2024-06-14] MEDS ORDERED: OMEP-434 PO (15:33)
[2024-06-14 22:45] VITALS: BP 110/75; PULSE 70; RESP 18; TEMP 97.8; O2SAT 99
== END 2024-06-14 22:56 | disposition home or self-care (01) ==
LOC: ER 11:23
DX: R07.89 Other chest pain (principal); R10.2 Pelvic and perineal pain; R63.4 Abnormal weight loss; F41.9 Anxiety disorder, unspecified; K21.9 Gastro-esophageal reflux disease without esophagitis; M06.9 Rheumatoid arthritis, unspecified; Z68.1 Body mass index [BMI] 19.9 or less, adult; Z98.890 Other specified postprocedural states; Z88.1 Allergy status to other antibiotic agents; Z79.899 Other long term (current) drug therapy; Z88.8 Allergy status to other drugs, medicaments and biological substances
CPT/HCPCS: 36415; 71045; 80053; 81001; 83690; 83880; 84484; 84702; 85025; 93005

== ENCOUNTER 2024-06-30 16:28 | Emergency (ER) | payer MEDICAID ==
[~2024-06-30] VITALS: Ht 167.6 cm; Wt 54.4 kg
[~2024-06-30 16:28] MED LIST changes: +OMEP-434 PO
[2024-06-30 17:03] VITALS: BP 138/85; PULSE 91; RESP 20; TEMP 98.1; O2SAT 100
[2024-06-30] MEDS: cefTRIAXone SOD 1,000 MG VL IM ONE (17:23)
[2024-06-30] MEDS ORDERED: METH4PAK PO (17:31)
== END 2024-06-30 17:55 | disposition home or self-care (01) ==
LOC: ER 16:28
DX: J02.9 Acute pharyngitis, unspecified (principal); M19.90 Unspecified osteoarthritis, unspecified site; K21.9 Gastro-esophageal reflux disease without esophagitis; F41.9 Anxiety disorder, unspecified; Z86.2 Personal history of diseases of the blood and blood-forming organs and certain disorders involving the immune mechanism; Z98.890 Other specified postprocedural states; Z88.1 Allergy status to other antibiotic agents; Z88.8 Allergy status to other drugs, medicaments and biological substances; Z79.899 Other long term (current) drug therapy
CPT/HCPCS: 96372; 99283; J0696

== ENCOUNTER 2024-07-02 00:43 | Emergency (ER) | payer MEDICAID ==
[~2024-07-02] VITALS: Ht 167.6 cm; Wt 56.5 kg
[~2024-07-02 00:43] MED LIST changes: +METH4PAK PO
[2024-07-02 00:55] VITALS: BP 124/83; PULSE 98; RESP 18; O2SAT 99
== END 2024-07-02 02:40 | disposition left against medical advice (07) ==
LOC: ER 00:43
DX: E03.9 Hypothyroidism, unspecified (principal); Z71.1 Person with feared health complaint in whom no diagnosis is made; Z88.8 Allergy status to other drugs, medicaments and biological substances; Z79.899 Other long term (current) drug therapy; Z88.1 Allergy status to other antibiotic agents; Z98.890 Other specified postprocedural states

== ENCOUNTER 2024-07-06 20:23 | Emergency (ER) | payer MEDICAID ==
[~2024-07-06] VITALS: Ht 167.6 cm; Wt 5.0 kg
[2024-07-06 20:32] VITALS: BP 116/89; RESP 8; O2SAT 100
[2024-07-06 20:49] LABS: Basophils # (auto) 0 10 ^3/uL (0-0.2); Basophils % (auto) 0.8 % (0.0-2.0); Eosinophils # (auto) 0.2 10 ^3/uL (0-0.8); Eosinophils % (auto) 4.1 % (0.0-7.0); Hematocrit 30.5 % (36.0-46.0); Hemoglobin 9.5 g/dL (12.2-16.2); Lymphocytes # (auto) 1.8 10 ^3/uL (0.4-5.4); Lymphocytes % (auto) 33.6 % (10.0-50.0); Mean Corpuscular Hemoglobin 24.1 pg (28.0-32.0); Mean Corpuscular Hgb Conc. 31.1 g/dL (32.0-36.0); Mean Corpuscular Volume 77.4 fL (80.0-100.0); Monocytes # (auto) 0.5 10 ^3/uL (0-1.3); Monocytes % (auto) 9.4 % (0.0-12.0); Neutrophils # (auto) 2.8 10 ^3/uL (1.6-8.6); Neutrophils % (auto) 52.1 % (37.0-80.0); Nucleated Red Blood Cells % 0.1 %; Platelet Count (auto) 312 10^3/uL (140-450); Red Blood Cells 3.94 10^6/uL (4.0-5.20); Red Cell Distribution Width 19.8 % (11.8-14.3); White Blood Cell 5.4 10^3/uL (4.4-10.8)
[2024-07-06 21:04] LABS: INR 1.06 (0.9-1.15); Prothrombin Time 11.2 sec (9.3-11.8)
[2024-07-06 21:06] LABS: Albumin 4.3 g/dL (3.2-4.8); Alkaline Phosphatase 80 U/L (46-116); Anion Gap 5 (5-15); Aspartate Aminotransferase 13 U/L (13-40); BUN/Creatinine Ratio 7.7 (10.0-20.0); Blood Urea Nitrogen 6 mg/dL (9-23); Carbon Dioxide 26 mmol/L (20-31); Chloride 109 mmol/L (98-107); Glucose 87 mg/dL (74-106); Potassium 3.4 mmol/L (3.5-5.1); Sodium 140 mmol/L (136-145)
[2024-07-06 21:07] LABS: Bilirubin, Total 0.2 mg/dL (0.2-1.0)
[2024-07-06 21:09] LABS: Alanine Aminotransferase 9 U/L (7-40)
[2024-07-06 23:52] VITALS: PULSE 79
[2024-07-07] MEDS ORDERED: CEPH500C PO (10:20)
[2024-07-07] MEDS ORDERED: FLUC150T38 PO (10:39)
== END 2024-07-07 00:42 | disposition home or self-care (01) ==
LOC: ER 20:23
DX: F22 Delusional disorders (principal); K21.9 Gastro-esophageal reflux disease without esophagitis; M19.90 Unspecified osteoarthritis, unspecified site; F41.9 Anxiety disorder, unspecified; Z79.899 Other long term (current) drug therapy; Z98.890 Other specified postprocedural states; Z88.0 Allergy status to penicillin; Z88.1 Allergy status to other antibiotic agents; Z88.8 Allergy status to other drugs, medicaments and biological substances
CPT/HCPCS: 36415; 71045; 80053; 83880; 84484; 85025; 85379; 85610; 85730; 93005

== ENCOUNTER 2024-07-07 07:39 | Emergency (ER) | payer MEDICAID ==
[~2024-07-07] VITALS: Ht 167.6 cm; Wt 55.0 kg
[2024-07-07 08:08] VITALS: BP 138/88; PULSE 98; RESP 18; TEMP 97.9; O2SAT 100
[2024-07-07 09:25] LABS: Basophils # (auto) 0 10 ^3/uL (0-0.2); Eosinophils # (auto) 0.2 10 ^3/uL (0-0.8); Monocytes # (auto) 0.4 10 ^3/uL (0-1.3); Neutrophils # (auto) 2.6 10 ^3/uL (1.6-8.6); Nucleated Red Blood Cells % 0.1 %; White Blood Cell 4.2 10^3/uL (4.4-10.8)
[2024-07-07 09:28] LABS: Basophils % (auto) 0.9 % (0.0-2.0); Hemoglobin 10.6 g/dL (12.2-16.2); Lymphocytes % (auto) 24.2 % (10.0-50.0); Mean Corpuscular Hemoglobin 25.2 pg (28.0-32.0); Mean Corpuscular Hgb Conc. 32.2 g/dL (32.0-36.0); Monocytes % (auto) 9.6 % (0.0-12.0); Neutrophils % (auto) 61.3 % (37.0-80.0); Platelet Count (auto) 362 10^3/uL (140-450); Red Blood Cells 4.23 10^6/uL (4.0-5.20); Red Cell Distribution Width 19.9 % (11.8-14.3)
[2024-07-07 10:02] LABS: Chloride 106 mmol/L (98-107); Potassium 3.6 mmol/L (3.5-5.1); Sodium 140 mmol/L (136-145)
[2024-07-07 10:03] LABS: Anion Gap 9 (5-15); Calcium 10.6 mg/dL (8.7-10.4); Carbon Dioxide 25 mmol/L (20-31)
[2024-07-07 10:08] LABS: Glucose 93 mg/dL (74-106)
[2024-07-07 10:09] LABS: BUN/Creatinine Ratio 6.3 (10.0-20.0); Blood Urea Nitrogen < 5 mg/dL (9-23)
[2024-07-07] MEDS ORDERED: CEPH500C PO (10:20)
[2024-07-07] MEDS ORDERED: FLUC150T38 PO (10:39)
== END 2024-07-07 10:48 | disposition home or self-care (01) ==
LOC: ER 07:39
DX: E04.1 Nontoxic single thyroid nodule (principal); I88.9 Nonspecific lymphadenitis, unspecified; K21.9 Gastro-esophageal reflux disease without esophagitis; M19.90 Unspecified osteoarthritis, unspecified site; F41.9 Anxiety disorder, unspecified; Z86.2 Personal history of diseases of the blood and blood-forming organs and certain disorders involving the immune mechanism; Z98.890 Other specified postprocedural states; Z88.0 Allergy status to penicillin; Z88.1 Allergy status to other antibiotic agents; Z88.8 Allergy status to other drugs, medicaments and biological substances; Z79.899 Other long term (current) drug therapy
CPT/HCPCS: 36415; 76536; 80048; 84443; 85025

== ENCOUNTER 2024-08-04 12:32 | Emergency (ER) | payer MEDICAID ==
[~2024-08-04] VITALS: Ht 162.6 cm; Wt 55.1 kg
[~2024-08-04 12:32] MED LIST changes: +CEPH500C PO; +FLUC150T38 PO
--- NOTE | 2024-08-04 13:25 | ED.PDOC ---
Eye-HPI HPI Comments 33y F who presents to the ED for chief complaint of sore throat. Pt in the ED, states she would like to be seen by another provider. Pt states she was seen by Dr. Lopez previously and states she would like another provider. Pt was told she has to be seen by whichever provider is available and continued to state she wants another provider. Pt has been to [facility] 18x in the past 1 months for various miscellaneous complaints and always asking for narcotic medications. Pt otherwise not willing to answer any questions in the ED. ADDENDUM BY RENETTA GASTELUM: A 33 YEAR OLD FEMALE PRESENTS TO THE ED WITH COMPLAINT OF SORE THROAT. PATIENT REPORTS THAT SHE HAS BEEN EXPERIENCING THROAT PAIN AND DIFFICULTY SWALLOWING FOR MONTHS. PATIENT RELAYS SHE HAD A RECENT CT SCAN WHICH INDICATED SINUS DISEASE AND NASAL POLYPS. PATIENT STATES SHE REQUIRES MORE TESTING TO DETERMINE WHAT IS CAUSING HER THROAT SWELLING AND PAIN. PATIENT DENIES FEVER, CHILLS, SHORTNESS OF BREATH, CHEST PAIN, ABDOMINAL PAIN, NAUSEA, VOMITING, HEADACHE, OR OTHER COMPLAINTS. NO OTHER SYMPTOMS OR MODIFYING FACTORS AT THIS TIME. PATIENT HAS BEEN SEEN NUMEROUS TIMES IN THE PAST FOR THE SAME COMPLAINT. PATIENT SHOWED LABS PERFORMED BY PCP WHICH WERE ALL NORMAL. PATIENT ADVISED TO FOLLOW UP WITH PCP FOR REFERRAL TO SPECIALISTS FOR FURTHER EVALUATION. Chief Complaint: Sore Throat Time Seen by MD: 13:24 Primary Care Provider: RUFINO Reviewed Notes: Nurses Notes, Medications, Allergies Allergies: Coded Allergies: Amoxicillin (Verified Allergy, Unknown, 07/06/24) Clindamycin (Verified Allergy, Unknown, 05/06/24) Metronidazole (Verified Allergy, Unknown, 07/06/24) Penicillins (Verified Allergy, Unknown, 07/06/24) Promethazine (Verified Allergy, Unknown, 05/06/24) Home Meds Active Scripts Dexamethasone (Decadron) 4 Mg Tb, 8 TAB PO DAILY for 5 Days, #5 TAB Prov:RENETTA GASTELUM 08/04/24 Fluconazole (Diflucan) 150 Mg Tab, 1 TAB PO ONCE, #1 TAB Prov:RENETTA GASTELUM 07/07/24 Methylprednisolone (Medrol Dosepak) 4 Mg Leo, 4 MG PO UD, #21 TAB UAD Prov:RENETTA GASTELUM 07/07/24 Cephalexin Monohydrate (Cephalexin) 500 Mg Cap, 1 CAP PO TID, #30 CAP Prov:RENETTA GASTELUM 07/07/24 Methylprednisolone (Medrol Dosepak) 4 Mg Leo, 4 MG PO UD, #21 TAB UAD Prov:RENETTA GASTELUM 06/30/24 Omeprazole Magnesium (Omeprazole) 20 Mg Tab, 20 MG PO DAILY, #30 TAB Prov:LAKIA HEART MD 06/14/24 Edenhhalfji-Qqvghrxju-Gmleuzmd (Talicia 250-12.5-10 mg) 1 Cap Cap, 1 CAP PO DAILY for 14 Days, #14 CAP Prov:OPALSILVIA RESIDENT 05/25/24 Ondansetron Odt 4MG Tab (ZOFRAN PO) 4 Mg Tb, 4 MG PO Q8HPRN PRN, #30 TAB ODT TAB-DISSOLVE IN MOUTH, THEN SWALLOW Prov:SERGIO PAVON MD 05/03/24 Omeprazole-Sodium Bicarbonate (Omeprazole/Sodium Bicarbo 20-1680 mg) 1 Pow Pow, 20 MG PO BIDAC, #28 POW Prov:SERGIO PAVON MD 05/03/24 Bismuth Subsalicylate (Sm Stomach Relief) 262 Mg/15 Ml Iliana, 524 MG PO Q6HR for 14 Days, #840 ML Prov:SERGIO PAVON MD 05/03/24 Ferrous Sulfate (Ferrous Sulfate) 325 Mg Tab, 325 MG PO DAILY, #30 TAB Prov:SERGIO PAVON MD 05/03/24 Docusate Sodium (Docusate Sodium) 100 Mg Cap, 100 MG PO BIDPRN PRN, #60 CAP Prov:SERGIO PAVON MD 05/03/24 Alum & Mag Hydrox-Simethicone (Maalox Plus) 30 Ml Ss, 30 ML GT 2XW PRN, #100 ML 0 Refills Prov:SARAI KENNEDY MD 04/18/24 Metoprolol Succinate (Metoprolol Succinate Er) 25 Mg Tab, 12.5 MG PO BID for 30 Days, #30 TAB Prov:VALERIE WATSON [facility] 04/12/24 Albuterol Sulfate (Albuterol Sulfate Hfa) 108 Mcg/Act Aer, 108 MCG IN Q4HP PRN, #1 AER Prov:RANDI VIEIRA [facility] 04/04/24 Calcium Carbonate-Simethicone (Maalox Advanced Maximum S) 1 Chw Chw, 1 CHW PO Q8HP PRN, #30 TAB.CHEW Prov:RANDI IVEIRA [facility] 04/04/24 Meclizine HCl (Meclizine 25) 25 Mg Tab, 25 MG PO Q8HP PRN, #15 TAB Prov:RANDI VIEIRA [facility] 01/11/24 Loratadine (Claritin) 10 Mg Cap, 10 MG PO DAILY for 14 Days, #14 CAP Prov:RANDI VIEIRA [facility] 01/11/24 Sodium Phosphates (FLEET ENEMA SIX PACK) Enema Mirta, 1 PACK RE BIDP PRN, #6 EA Prov:RANDI VIEIRA [facility] 01/11/24 Lactulose (Lactulose) 10 Gm/15 Ml Mary, 10 GM PO BIDP PRN, #150 ML Prov:RANDI VIEIRA [facility] 01/11/24 Hydrocodone-Acetaminophen (Hydrocodone Bitartrate/AC 5-325 mg) 1 Tab Tab, 1 TAB PO QIDP, #20 TAB 0 Refills Prov:DION GRAHAM MD 01/17/22 Information Source: Patient Mode of Arrival: Ambulatory Brought in by: self Timing: Months Duration: Since onset, Intermittent Prehospital treatment: Treatment Quality: Pain, Red Lids: Normal Conjunctiva: Normal Cornea: Normal EOM: Normal Slit lamp exam: Normal Anterior chamber: Normal Mouth Location: Pharynx Mouth: Normal ENT Ear Exam: Normal Nose: Normal Sinuses: Normal Oropharynx: Red Onset: Spontaneous Throat Exposed to: None History of: None Last Tetanus: UTD Modifying factors: Cold Associated signs and symptoms: Sore Throat Past Medical History PAST MEDICAL HISTORY: Anemia, Anxiety, Arthritis, GERD Surgical History: Hernia Repair COIL FINISHER History: Denies all COIL FINISHER Hx Family History Family History: Family hx of heart isra Family History (Other): Mother has Sickle cell anemia Social History Smoker: Non-Smoker Alcohol: Denies ETOH Use Drugs: Denies Drug Use Lives In: Home Constitutional: denies: chills, diaphoresis, fatigue, fever, malaise, sweats, weakness, others EENTM: reports: throat pain; denies: blurred vision, double vision, ear bleeding, ear discharge, ear drainage, ear pain, ear ringing, eye pain, eye redness, hearing loss, mouth pain, mouth swelling, nasal discharge, nose bleeding, nose congestion, nose pain, photophobia, tearing, throat swelling, voice changes, others Respiratory: denies: cough, hemoptysis, orthopnea, SOB at rest, shortness of breath, SOB with excertion, stridor, wheezing, others Cardiovascular: denies: chest pain, dizzy spells, diaphoresis, Dyspnea on exertion, edema, irregular heart beat, left arm pain, lightheadedness, palpitations, PND, syncope, others Gastrointestinal: denies: abdomen distended, abdominal pain, blood streaked bowels, constipated, diarrhea, dysphagia, difficulty swallowing, hematemesis, melena, nausea, poor appetite, poor fluid intake, rectal bleeding, rectal pain, vomiting, others Genitourinary: denies: abnormal vagina bleeding, burning, dyspareunia, dysuria, flank pain, frequency, hematuria, incontinence, pain, , vagina discharge, urgency, others Neurological: denies: dizziness, fainting, headache, left sided numbness, left sided weakness, numbness, paresthesia, pre-existing deficit, right sided numbness, right sided weakness, seizure, speech problems, tingling, tremors, weakness, others Musculoskeletal: denies: back pain, gout, joint pain, joint swelling, muscle pain, muscle stiffness, neck pain, others Integumetry: denies: bruises, change in color, change in hair/nails, dryness, laceration, lesions, lumps, rash, wounds, others Allergic/Immunocompromised: denies: Difficulty Healing, Frequent Infections, Hives, Itching, others Hematologic/Lymphatic: denies: anemia, blood clots, easy bleeding, easy bruising, swollen glands, others Endocrine: denies: excessive hunger, excessive sweating, excessive thirst, excessive urination, flushing, intolerance to cold, intolerance to heat, unexplained weight gain, unexplained weight loss, others Psychiatric: reports: anxiety; denies: bipolar disorder, depression, hopeless, panic disorder, schizophrenia, sleepless, suicidal, others All Other Systems: Reviewed and Negative Physical Exam General Appearance: No Apparent Distress, Normal, Other (ANXIOUS ) HEENT: PERRL/EOMI, Pharyngeal Erythema (VESICLE PHARYNX, NO EXUDATES. ), TMs Normal Neck: Full Range of Motion, Non-Tender, Normal, Normal Inspection Respiratory: Chest Non-Tender, Lungs Clear, No Accessory Muscle Use, No Respiratory Distress, Normal Breath Sounds Cardiovascular: No Edema, No JVD, No Murmur, No Gallop, Normal Peripheral Pulses, Regular Rate/Rhythm Breast Exam: Deferred Gastrointestinal: No Organomegaly, Non Tender, No Pulsatile Mass, Normal Bowel Sounds, Soft Genitalia: Deferred Pelvic: Deferred Rectal: Deferred Extremities: No calf tenderness, Normal capillary refill, Normal inspection, Normal range of motion, Non-tender, No pedal edema Musculoskeletal : Apperance: Normal Neurologic: Alert, action installer II-XII nml as Tested, No Motor Deficits, Normal Affect, Normal Mood, No Sensory Deficits Cerebellar Function: Normal Reflexes: Normal Skin: Dry, Normal Color, Warm Peripheral Pulses: 2+ carotid (R), 2+ carotid (L) Lymphatic: No Adenopathy Was a procedure done? Was a procedure done?: No EENT DIFF Eye: N/A Ear: Otitis Media, Pharyngitis Other Differential Diagnosis factitious disorder X-Ray, Labs, Meds, VS Vital Signs Date Time Temp Pulse Resp B/P (MAP) Pulse Ox O2 Delivery O2 Flow Rate FiO2 08/04/24 13:18 98.4 112 16 137/77 (97) 100 Time of 1ST Reevaluation: 14:25 Reevaluation 1ST: Improved Patient Education/Counseling: Diagnosis, Treatment Family Education/Counseling: Diagnosis, Treatment, Need For Follow Up Medical Screening: No EMC Exist At This Time Departure 1 Departure Time of Disposition: 14:25 Impression: Primary Impression: Viral pharyngitis Additional Impression: Anxiety reaction Disposition: 01 HOME / SELF CARE / HOMELESS Condition: Stable Additional Instructions: F/U PCP IN 2 DAYS RECHECK. IF CONDITION BECOME WORSE, RETURN TO ED REJI. e-Prescriptions Dexamethasone (Decadron) 4 Mg Tb 8 TAB PO DAILY for 5 Days, #5 TAB Prov: RENETTA GASTELUM 08/04/24 Discharged With: Self Critical Care Note Critical Care Time?: No Stability Stability form required: No Heart Score Heart Score: Heart Score Response (Comments) Value History N/A 0 EKG N/A 0 Age N/A 0 Risk Factors N/A 0 Troponin N/A 0 Total 0 I personally scribed for LORENZA LOPEZ MD ([email or web address]) on 08/04/24 at 13:25. Electronically submitted by Neto Berry ([email or web address]). I personally scribed for LORENZA LOPEZ MD ([email or web address]) on 08/04/24 at 14:20. Electronically submitted by Vincent Barrios ([email or web address]). I personally scribed for LORENZA LOPEZ MD ([email or web address]) on 08/04/24 at 14:21. Electronically submitted by Vincent Barrios ([email or web address]). LORENZA LOPEZ MD Aug 04, 2024 13:25 RENETTA GASTELUM Aug 04, 2024 14:27
[2024-08-04] MEDS ORDERED: DEX4T PO (14:19)
[2024-08-04 14:27] VITALS: BP 138/78; PULSE 98; RESP 18; TEMP 98.6; O2SAT 98
== END 2024-08-04 14:29 | disposition home or self-care (01) ==
LOC: ER 12:32
DX: J02.8 Acute pharyngitis due to other specified organisms (principal); F41.1 Generalized anxiety disorder; B97.89 Other viral agents as the cause of diseases classified elsewhere; K21.9 Gastro-esophageal reflux disease without esophagitis; M19.90 Unspecified osteoarthritis, unspecified site; Z79.52 Long term (current) use of systemic steroids; Z79.899 Other long term (current) drug therapy; Z88.0 Allergy status to penicillin; Z88.1 Allergy status to other antibiotic agents; Z98.890 Other specified postprocedural states

== ENCOUNTER 2024-08-27 12:40 | Emergency (ER) | payer MEDICAID ==
[~2024-08-27] VITALS: Ht 167.6 cm; Wt 56.3 kg
[~2024-08-27 12:40] MED LIST changes: +DEX4T PO
[2024-08-27 14:21] VITALS: BP 131/95; PULSE 16; RESP 16; TEMP 98.5; O2SAT 100
--- NOTE | 2024-08-27 14:58 | ED.PDOC ---
History of Present Illness HPI Comments A 34 YEAR OLD FEMALE PRESENTS TO THE ED WITH COMPLAINT OF EPIGASTRIC BURNING PAIN WITH NAUSEA, THROAT PAIN AND FATIGUE. PT STATES SHE HAS REOCCURRING H. PYLORI AND DIAGNOSED BY HER PCP BUT SHE DID NOT GET MEDICATION TREATMENT. PT HAS BEEN SEEN AT [facility] MULTIPLE TIMES FOR SAME COMPLAINT AND HAS BEEN ADMITTED BEFORE. PREVIOUS NOTES REVIEWED. ALL LABS AND UPPER GI TEST WNL. PT HAS HX OF ANXIETY AND GERD. AT THIS TIME, PT IS DEMANDING TO BE ADMITTED TO THE HOSPITAL AGAIN. PATIENT DENIES FEVER, CHILLS, SHORTNESS OF BREATH, CHEST PAIN, HEADACHE, OR OTHER COMPLAINTS. NO OTHER SYMPTOMS OR MODIFYING FACTORS AT THIS TIME. PATIENT IS ALERT, ORIENTED X 4, AND HAS STEADY GAIT. Chief Complaint: Sore Throat Time Seen by MD: 14:35 Primary Care Provider: DEE Reviewed Notes: Nurses Notes, Medications, Allergies Allergies: Coded Allergies: Amoxicillin (Verified Allergy, Unknown, 07/06/24) Clindamycin (Verified Allergy, Unknown, 05/06/24) Metronidazole (Verified Allergy, Unknown, 07/06/24) Penicillins (Verified Allergy, Unknown, 07/06/24) Promethazine (Verified Allergy, Unknown, 05/06/24) Home Meds Active Scripts Levofloxacin Hemihydrate (LEVAQUIN 500 MG) 500 Mg Tab, 250 MG PO DAILY for 14 Days, #14 TAB Prov:RENETTA GASTELUM 08/27/24 Dexamethasone (Decadron) 4 Mg Tb, 8 TAB PO DAILY for 5 Days, #5 TAB Prov:RENETTA GASTELUM 08/04/24 Fluconazole (Diflucan) 150 Mg Tab, 1 TAB PO ONCE, #1 TAB Prov:RENETTA GASTELUM 07/07/24 Methylprednisolone (Medrol Dosepak) 4 Mg Leo, 4 MG PO UD, #21 TAB UAD Prov:RENETTA GASTELUM 07/07/24 Cephalexin Monohydrate (Cephalexin) 500 Mg Cap, 1 CAP PO TID, #30 CAP Prov:RENETTA GASTELUM 07/07/24 Methylprednisolone (Medrol Dosepak) 4 Mg Leo, 4 MG PO UD, #21 TAB UAD Prov:RENETTA GASTELUM 06/30/24 Omeprazole Magnesium (Omeprazole) 20 Mg Tab, 20 MG PO DAILY, #30 TAB Prov:LAKIA HEART MD 06/14/24 Qxocjpqrfts-Kelpnmzjj-Jzgxuxgf (Talicia 250-12.5-10 mg) 1 Cap Cap, 1 CAP PO DAILY for 14 Days, #14 CAP Prov:SILVIA JOSEPH RESIDENT 05/25/24 Ondansetron Odt 4MG Tab (ZOFRAN PO) 4 Mg Tb, 4 MG PO Q8HPRN PRN, #30 TAB ODT TAB-DISSOLVE IN MOUTH, THEN SWALLOW Prov:SERGIO PAVON MD 05/03/24 Omeprazole-Sodium Bicarbonate (Omeprazole/Sodium Bicarbo 20-1680 mg) 1 Pow Pow, 20 MG PO BIDAC, #28 POW Prov:SERGIO PAVON MD 05/03/24 Bismuth Subsalicylate (Sm Stomach Relief) 262 Mg/15 Ml Iliana, 524 MG PO Q6HR for 14 Days, #840 ML Prov:SERGIO PAVON MD 05/03/24 Ferrous Sulfate (Ferrous Sulfate) 325 Mg Tab, 325 MG PO DAILY, #30 TAB Prov:SERGIO PAVON MD 05/03/24 Docusate Sodium (Docusate Sodium) 100 Mg Cap, 100 MG PO BIDPRN PRN, #60 CAP Prov:SERGIO PAVON MD 05/03/24 Alum & Mag Hydrox-Simethicone (Maalox Plus) 30 Ml Ss, 30 ML GT 2XW PRN, #100 ML 0 Refills Prov:SARAI KENNEDY MD 04/18/24 Metoprolol Succinate (Metoprolol Succinate Er) 25 Mg Tab, 12.5 MG PO BID for 30 Days, #30 TAB Prov:VALERIE WATSON RESIDENT 04/12/24 Albuterol Sulfate (Albuterol Sulfate Hfa) 108 Mcg/Act Aer, 108 MCG IN Q4HP PRN, #1 AER Prov:RANDI VIEIRA PAC 04/04/24 Calcium Carbonate-Simethicone (Maalox Advanced Maximum S) 1 Chw Chw, 1 CHW PO Q8HP PRN, #30 TAB.CHEW Prov:RANDI VIEIRA PAC 04/04/24 Meclizine HCl (Meclizine 25) 25 Mg Tab, 25 MG PO Q8HP PRN, #15 TAB Prov:RANDI VIEIRA [facility] 01/11/24 Loratadine (Claritin) 10 Mg Cap, 10 MG PO DAILY for 14 Days, #14 CAP Prov:RANDI VIEIRA [facility] 01/11/24 Sodium Phosphates (FLEET ENEMA SIX PACK) Enema Mirta, 1 PACK RE BIDP PRN, #6 EA Prov:RANDI VIEIRA [facility] 01/11/24 Lactulose (Lactulose) 10 Gm/15 Ml Mary, 10 GM PO BIDP PRN, #150 ML Prov:RANDI VIEIRA [facility] 01/11/24 Hydrocodone-Acetaminophen (Hydrocodone Bitartrate/AC 5-325 mg) 1 Tab Tab, 1 TAB PO QIDP, #20 TAB 0 Refills Prov:DION GRAHAM MD 01/17/22 Information Source: Patient Mode of Arrival: Ambulatory Severity: Mild Timing: Months Duration: Intermittent Medication Refill: For: Other (ANXIETY ) Past Medical History PAST MEDICAL HISTORY: Anemia, Anxiety, Arthritis, GERD Surgical History: Hernia Repair SEXUAL HEALTH PHYSICIAN History: Denies all SEXUAL HEALTH PHYSICIAN Hx Family History Family History: Family hx of heart isra Family History (Other): Mother has Sickle cell anemia Social History Smoker: Non-Smoker Alcohol: Denies ETOH Use Drugs: Denies Drug Use Lives In: Home Constitutional: reports: others (ANXIETY ); denies: chills, diaphoresis, fatigue, fever, malaise, sweats, weakness EENTM: denies: blurred vision, double vision, ear bleeding, ear discharge, ear drainage, ear pain, ear ringing, eye pain, eye redness, hearing loss, mouth pain, mouth swelling, nasal discharge, nose bleeding, nose congestion, nose pain, photophobia, tearing, throat pain, throat swelling, voice changes, others Respiratory: denies: cough, hemoptysis, orthopnea, SOB at rest, shortness of breath, SOB with excertion, stridor, wheezing, others Cardiovascular: denies: chest pain, dizzy spells, diaphoresis, Dyspnea on exertion, edema, irregular heart beat, left arm pain, lightheadedness, palpitations, PND, syncope, others Gastrointestinal: reports: abdominal pain (EPIGASTRIC ), nausea; denies: abdomen distended, blood streaked bowels, constipated, diarrhea, dysphagia, difficulty swallowing, hematemesis, melena, poor appetite, poor fluid intake, rectal bleeding, rectal pain, vomiting, others Genitourinary: denies: abnormal vagina bleeding, burning, dyspareunia, dysuria, flank pain, frequency, hematuria, incontinence, pain, , vagina discharge, urgency, others Neurological: denies: dizziness, fainting, headache, left sided numbness, left sided weakness, numbness, paresthesia, pre-existing deficit, right sided numbness, right sided weakness, seizure, speech problems, tingling, tremors, weakness, others Musculoskeletal: denies: back pain, gout, joint pain, joint swelling, muscle pain, muscle stiffness, neck pain, others Integumetry: denies: bruises, change in color, change in hair/nails, dryness, laceration, lesions, lumps, rash, wounds, others Allergic/Immunocompromised: denies: Difficulty Healing, Frequent Infections, Hives, Itching, others Hematologic/Lymphatic: denies: anemia, blood clots, easy bleeding, easy bruising, swollen glands, others Endocrine: denies: excessive hunger, excessive sweating, excessive thirst, excessive urination, flushing, intolerance to cold, intolerance to heat, unexplained weight gain, unexplained weight loss, others Psychiatric: reports: anxiety; denies: bipolar disorder, depression, hopeless, panic disorder, schizophrenia, sleepless, suicidal, others All Other Systems: Reviewed and Negative Physical Exam General Appearance: No Apparent Distress, Normal HEENT: Normal ENT Inspection, PERRL/EOMI, Pharynx Normal, TMs Normal Neck: Full Range of Motion, Non-Tender, Normal, Normal Inspection Respiratory: Chest Non-Tender, Lungs Clear, No Accessory Muscle Use, No Respiratory Distress, Normal Breath Sounds Cardiovascular: No Edema, No JVD, No Murmur, No Gallop, Normal Peripheral Pulses, Regular Rate/Rhythm Breast Exam: Deferred Gastrointestinal: Epigastric, No Organomegaly, No Pulsatile Mass, Normal Bowel Sounds, Soft, Tenderness (MILD TENDERNESS EPIGASTRIC, NO GUARDING AND REBOUND TENDERNESS. ) Genitalia: Deferred Pelvic: Deferred Rectal: Deferred Extremities: No calf tenderness, Normal capillary refill, Normal inspection, Normal range of motion, Non-tender, No pedal edema Musculoskeletal : Apperance: Normal Neurologic: Alert, office bookkeeper II-XII nml as Tested, No Motor Deficits, Normal Affect, Normal Mood, No Sensory Deficits Cerebellar Function: Normal Reflexes: Normal Skin: Dry, Normal Color, Warm Peripheral Pulses: 2+ carotid (R), 2+ carotid (L) Lymphatic: No Adenopathy Was a procedure done? Was a procedure done?: No Differential Dx Considerations may include: GERD, ANXIETY REACTION, HX OF H.PYLORI X-Ray, Labs, Meds, VS Vital Signs Date Time Temp Pulse Resp B/P (MAP) Pulse Ox O2 Delivery O2 Flow Rate FiO2 08/27/24 14:21 98.5 96 16 131/95 (107) 100 98.5 08/27/24 14:21 16 16 100 Room Air* 0 21 08/27/24 13:20 98.5 96 16 131/95 (107) 100 Lab Test 08/27/24 15:00 Range/Units White Blood Count 4.9 4.4-10.8 10^3/uL Red Blood Count 4.47 4.0-5.20 10^6/uL Hemoglobin 12.5 12.2-16.2 g/dL Hematocrit 37.5 36.0-46.0 % Mean Corpuscular Volume 83.9 80.0-100.0 fL Mean Corpuscular Hemoglobin 27.9 L 28.0-32.0 pg Mean Corpuscular Hemoglobin Concent 33.2 32.0-36.0 g/dL Red Cell Distribution Width 23.3 H 11.8-14.3 % Platelet Count 310 140-450 10^3/uL Mean Platelet Volume 7.7 6.9-10.8 fL Neutrophils (%) (Auto) 53.1 37.0-80.0 % Lymphocytes (%) (Auto) 37.5 10.0-50.0 % Monocytes (%) (Auto) 7.1 0.0-12.0 % Eosinophils (%) (Auto) 1.1 0.0-7.0 % Basophils (%) (Auto) 1.2 0.0-2.0 % Neutrophils # (Auto) 2.6 1.6-8.6 10 ^3/uL Lymphocytes # (Auto) 1.8 0.4-5.4 10 ^3/uL Monocytes # (Auto) 0.3 0-1.3 10 ^3/uL Eosinophils # (Auto) 0.1 0-0.8 10 ^3/uL Basophils # (Auto) 0.1 0-0.2 10 ^3/uL Nucleated Red Blood Cells 0.3 % Platelet Estimate Adequate Anisocytosis (manual) Slight Schistocytes Few Sodium Level 140 136-145 mmol/L Potassium Level 4.3 3.5-5.1 mmol/L Chloride Level 106 98-107 mmol/L Carbon Dioxide Level 25 20-31 mmol/L Anion Gap 9 5-15 Blood Urea Nitrogen 9 9-23 mg/dL Creatinine 0.85 0.550-1.02 mg/dL Glomerular Filtration Rate Calc 92 >90 mL/min BUN/Creatinine Ratio 10.6 10.0-20.0 Serum Glucose 94 74-106 mg/dL Calcium Level 10.1 8.7-10.4 mg/dL Troponin I High Sensitivity < 3 L </=34 ng/L Current Medications Medications (Trade) Dose Ordered Sig/Abelino Route Start Time Stop Time Status Last Admin Belladonna Alkaloids/ Phenobarbital ( Elixir) 10 ml ONCE ONCE PO 08/27/24 15:30 08/27/24 15:31 DC 08/27/24 15:45 Lidocaine HCl (Xylocaine 2% Viscous) 10 ml ONCE ONCE PO 08/27/24 15:30 08/27/24 15:31 DC 08/27/24 15:45 Al Hydrox/Mg Hydrox/Simethicone (Maalox Plus) 30 ml ONCE ONCE PO 08/27/24 15:30 08/27/24 15:31 DC 08/27/24 15:45 X-Ray, Labs, Meds, VS Comment COURSE: EXTERNAL MEDICAL RECORDS REVIEWED: [facility] DISCHARGE 05/27/2024 AND 05/19/2024 INDEPENDENT HISTORIANS: [NONE] SOCIAL DETERMINANTS OF HEALTH: [NONE] LABS ORDERED: CBC, BMP, TROPONIN REVIEWED AND INTERPRETED RESULTS: NORMAL IMAGING ORDERED: NONE TREATMENTS ORDERED: GI COCKTAIL PROCEDURES PERFORMED: NONE CRITICAL CARE TIME: NONE I HAVE DISCUSSED THE PATIENT WITH THE ATTENDING PHYSICIAN DR. NEHEMIAS POLLARD AND SHE AGREES WITH THE PATIENT'S PLAN OF CARE AND DISPOSITION. GIVEN THE HISTORY AND PRESENT ILLNESS OF THE PATIENT, AFTER REVIEWING LABS, IMAGING, AND COURSE OF TREATMENT ADMINISTERED DURING THEIR ED VISIT, THERE IS LOW SUSPICION FOR RED FLAG FINDINGS. BASED ON HISTORY OF PRESENT ILLNESS, AND PHYSICAL EXAM, PATIENT WILL BE DISCHARGED HOME. DISCUSSED PLAN FOR DISCHARGE HOME WITH RX. MEDICATION WARNINGS GIVEN. SHARED DECISION MAKING: DISCUSSED WITH PATIENT THAT THEIR WORKUP WAS NORMAL. PATIENT INSTRUCTED TO FOLLOW UP WITH PRIMARY CARE PROVIDER IN 1-2 DAYS FOR RE- EVALUATION OF SYMPTOMS. PATIENT VERBALIZES UNDERSTANDING TO RETURN TO ED FOR NEW OR WORSENING SYMPTOMS OR IF FOLLOW UP WITH PCP CANNOT BE OBTAINED. PATIENT FEELS COMFORTABLE GOING HOME AT THIS TIME. ALL QUESTIONS ADDRESSED AT TIME OF DISCHARGE. Time of 1ST Reevaluation: 16:18 Reevaluation 1ST: Improved Patient Education/Counseling: Diagnosis, Treatment, Need For Follow Up Family Education/Counseling: Diagnosis, Treatment, Need For Follow Up Medical Screening: No EMC Exist At This Time Departure 1 Departure Time of Disposition: 16:18 Impression: Primary Impression: Chronic GERD Additional Impressions: Anxiety reaction History of Helicobacter pylori infection Disposition: HOME / SELF CARE / HOMELESS Condition: Stable Additional Instructions: FOLLOW-UP WITH PCP IN 1 TO 2 DAYS. TAKE MEDICATIONS PRESCRIBED. RETURN TO ED FOR ANY NEW OR WORSENING SYMPTOMS. e-Prescriptions Levofloxacin Hemihydrate (LEVAQUIN 500 MG) 500 Mg Tab 250 MG PO DAILY for 14 Days, #14 TAB Prov: RENETTA GASTELUM 08/27/24 Discharged With: Self, Relative Critical Care Note Critical Care Time?: No Stability Stability form required: No Heart Score Heart Score: Heart Score Response (Comments) Value History N/A 0 EKG N/A 0 Age N/A 0 Risk Factors N/A 0 Troponin N/A 0 Total 0 I personally scribed for RENETTA GASTELUM ([email or web address]) on 08/27/24 at 14:58. Electronically submitted by Yani Kan (FP Complete). I personally scribed for RENETTA GASTELUM ([email or web address]) on 08/27/24 at 15:11. Electronically submitted by Yani Kan (FP Complete). RENETTA GASTELUM Aug 27, 2024 14:58
[2024-08-27 15:21] LABS: Chloride 106 mmol/L (98-107); Potassium 4.3 mmol/L (3.5-5.1); Sodium 140 mmol/L (136-145)
[2024-08-27 15:23] LABS: Basophils # (auto) 0.1 10 ^3/uL (0-0.2); Basophils % (auto) 1.2 % (0.0-2.0); Eosinophils # (auto) 0.1 10 ^3/uL (0-0.8); Eosinophils % (auto) 1.1 % (0.0-7.0); Hematocrit 37.5 % (36.0-46.0); Hemoglobin 12.5 g/dL (12.2-16.2); Lymphocytes # (auto) 1.8 10 ^3/uL (0.4-5.4); Lymphocytes % (auto) 37.5 % (10.0-50.0); Mean Corpuscular Hemoglobin 27.9 pg (28.0-32.0); Mean Corpuscular Hgb Conc. 33.2 g/dL (32.0-36.0); Mean Corpuscular Volume 83.9 fL (80.0-100.0); Monocytes # (auto) 0.3 10 ^3/uL (0-1.3); Monocytes % (auto) 7.1 % (0.0-12.0); Neutrophils # (auto) 2.6 10 ^3/uL (1.6-8.6); Neutrophils % (auto) 53.1 % (37.0-80.0); Nucleated Red Blood Cells % 0.3 %; Platelet Count (auto) 310 10^3/uL (140-450); Red Blood Cells 4.47 10^6/uL (4.0-5.20); White Blood Cell 4.9 10^3/uL (4.4-10.8)
[2024-08-27 15:24] LABS: Anion Gap 9 (5-15); Calcium 10.1 mg/dL (8.7-10.4); Carbon Dioxide 25 mmol/L (20-31); Red Cell Distribution Width 23.3 % (11.8-14.3)
[2024-08-27 15:27] LABS: BUN/Creatinine Ratio 10.6 (10.0-20.0); Blood Urea Nitrogen 9 mg/dL (9-23); Glucose 94 mg/dL (74-106)
[2024-08-27] MEDS: DONNATAL 5ml ORAL Elix (BELLADONNA ALK-PHENOBARB) PO ONE (15:45)
[2024-08-27] MEDS: LIDOCAINE VISCOUS 2% 15ML UD PO ONE (15:45)
[2024-08-27] MEDS: MAALOX PLUS or MAALOX 30 ML PO ONE (15:45)
[2024-08-27 15:54] LABS: Platelet Estimate Adequate
[2024-08-27 15:56] LABS: Anisocytosis Slight
[2024-08-27] MEDS ORDERED: LEVO500T91 PO (16:18)
== END 2024-08-27 16:25 | disposition home or self-care (01) ==
LOC: ER 12:40
DX: K21.9 Gastro-esophageal reflux disease without esophagitis (principal); F41.1 Generalized anxiety disorder; M19.90 Unspecified osteoarthritis, unspecified site; Z86.19 Personal history of other infectious and parasitic diseases; Z86.2 Personal history of diseases of the blood and blood-forming organs and certain disorders involving the immune mechanism; Z98.890 Other specified postprocedural states; Z88.0 Allergy status to penicillin; Z88.1 Allergy status to other antibiotic agents; Z79.52 Long term (current) use of systemic steroids; Z79.899 Other long term (current) drug therapy; Z88.8 Allergy status to other drugs, medicaments and biological substances
CPT/HCPCS: 36415; 80048; 84484; 85025

== ENCOUNTER 2024-09-24 00:49 | Emergency (ER) | payer MEDICAID ==
[~2024-09-24] VITALS: Ht 165.1 cm; Wt 54.5 kg
[~2024-09-24 00:49] MED LIST changes: +LEVO500T91 PO
[2024-09-24 01:48] VITALS: BP 138/86; PULSE 113; RESP 18; O2SAT 100
[2024-09-24] MEDS: KETOROLAC TROMETH 60MG/2ML VIAL IM ONE (02:13)
--- NOTE | 2024-09-24 02:35 | DVH ---
Examination: HWOCT CLINICAL INDICATION: Left-sided head/eye pain. COMPARISON: None. CONTRAST USED: None. TECHNIQUE: The examination was performed obtaining 5 mm slices without contrast. CT scan was done ac cording to ALARA (As Low as Reasonably Achievable). Multiplanar reconstructions were obtained. FINDINGS: SUPRATENTORIAL BRAIN: Cerebral Hemispheres: There is no midline shift or mass effect, intra or extra-axial fluid collection s or hemorrhage. Dural calcifications noted. Periventricular White Matter/Basal Ganglia: No abnormal areas of altered attenuation within the periv entricular white matter. Physiological symmetrical bilateral globus pallidi calcifications noted. POSTERIOR FOSSA: The brainstem is normal and the visualized cerebellar hemispheres are unremarkable. VENTRICULAR SYSTEM: The ventricular system is normal in size. There is no evidence of hydrocephalus o r transependymal flow of cerebrospinal fluid. SKULL BASE AND PARASELLAR REGION: The skull base is normal with no parasellar masses or abnormalities identified. CALVARIUM AND SCALP REGION: No abnormality is seen. PARANASAL SINUSES: No significant inflammatory changes are identified in the visualized paranasal sin uses. IMPRESSION: 1. No significant intracranial abnormality detected. 2. Chronic and/or ancillary findings as described above. 3. Advised further evaluation with MRI brain without contrast if clinically indicated. Electronically Signed 09/24/2024 02:33 Pearl Varela
--- NOTE | 2024-09-24 02:35 | DVH ---
Examination: LUMB2 Clinical Indication: Lumbar radiculopathy. Comparison: None. Technique: Ap and lateral view of lumbosacral spine were performed. Findings: There are 5 non-rib bearing lumbar vertebra. There is normal alignment without fracture. Mineraliza tion is normal. Vertebral body heights are preserved. Disc spaces and posterior elements are normal . No erosive or destructive changes. Mild degenerative facet arthropathy at L5-S1 level. Sacrum an d SI joints appear normal without fracture or asymmetry. Visualized paraspinal soft tissues are unre markable. Fecal impaction in the cecum and in the region of the distal sigmoid colon and rectum. Impression: 1. No acute fracture or subluxation. 2. Mild degenerative facet arthropathy at L5-S1 level. 3. Fecal impaction in the cecum and in the region of the distal sigmoid colon and rectum. Electronically Signed 09/24/2024 02:34 Pearl Varela
[2024-09-24] MEDS ORDERED: ACET500T58 PO (02:52)
[2024-09-24] MEDS ORDERED: IBUP-1455 PO (02:52)
--- NOTE | 2024-09-24 02:52 | ED.PDOC ---
Musculoskeletal HPI Comments This patient is a 34-year-old female who has a long history of hospital shopping due to extensive complaints arrives today with complaints of left calf pain and pressure behind her left eye for the past few days. Patient denies any traumatic events on either complaint. Patient states he calf pain has been intermittent while the left-sided head pain feels like she has pressure behind her eye. Patient denies any fever nausea or vomiting. Patient was tachycardic at arrival. Chief Complaint: Lower Extremity Time Seen by MD: 00:55 Primary Care Provider: LEILA Reviewed Notes: Nurses Notes Allergies: Coded Allergies: Amoxicillin (Verified Allergy, Unknown, 07/06/24) Clindamycin (Verified Allergy, Unknown, 05/06/24) Metronidazole (Verified Allergy, Unknown, 07/06/24) Penicillins (Verified Allergy, Unknown, 07/06/24) Promethazine (Verified Allergy, Unknown, 05/06/24) Home Meds Active Scripts Levofloxacin Hemihydrate (LEVAQUIN 500 MG) 500 Mg Tab, 250 MG PO DAILY for 14 Days, #14 TAB Prov:RENETTA GASTELUM 08/27/24 Dexamethasone (Decadron) 4 Mg Tb, 8 TAB PO DAILY for 5 Days, #5 TAB Prov:RENETTA GASTELUM 08/04/24 Fluconazole (Diflucan) 150 Mg Tab, 1 TAB PO ONCE, #1 TAB Prov:RENETTA GASTELUM 07/07/24 Methylprednisolone (Medrol Dosepak) 4 Mg Leo, 4 MG PO UD, #21 TAB UAD Prov:RENETTA GASTELUM 07/07/24 Cephalexin Monohydrate (Cephalexin) 500 Mg Cap, 1 CAP PO TID, #30 CAP Prov:RENETTA GASTELUM 07/07/24 Methylprednisolone (Medrol Dosepak) 4 Mg Leo, 4 MG PO UD, #21 TAB UAD Prov:RENETTA GASTELUM 06/30/24 Omeprazole Magnesium (Omeprazole) 20 Mg Tab, 20 MG PO DAILY, #30 TAB Prov:LAKIA HEART MD 06/14/24 Dwjxtvfkhgj-Pdlqtfjyu-Panaumlh (Talicia 250-12.5-10 mg) 1 Cap Cap, 1 CAP PO DAILY for 14 Days, #14 CAP Prov:SILVIA JOSEPH 05/25/24 Ondansetron Odt 4MG Tab (ZOFRAN PO) 4 Mg Tb, 4 MG PO Q8HPRN PRN, #30 TAB ODT TAB-DISSOLVE IN MOUTH, THEN SWALLOW Prov:SERGIO PAVON MD 05/03/24 Omeprazole-Sodium Bicarbonate (Omeprazole/Sodium Bicarbo 20-1680 mg) 1 Pow Pow, 20 MG PO BIDAC, #28 POW Prov:SERGIO PAVON MD 05/03/24 Bismuth Subsalicylate (Sm Stomach Relief) 262 Mg/15 Ml Iliana, 524 MG PO Q6HR for 14 Days, #840 ML Prov:SERGIO PAVON MD 05/03/24 Ferrous Sulfate (Ferrous Sulfate) 325 Mg Tab, 325 MG PO DAILY, #30 TAB Prov:SERGIO PAVON MD 05/03/24 Docusate Sodium (Docusate Sodium) 100 Mg Cap, 100 MG PO BIDPRN PRN, #60 CAP Prov:SERGIO PAVON MD 05/03/24 Alum & Mag Hydrox-Simethicone (Maalox Plus) 30 Ml Ss, 30 ML GT 2XW PRN, #100 ML 0 Refills Prov:SARAI KENNEDY MD 04/18/24 Metoprolol Succinate (Metoprolol Succinate Er) 25 Mg Tab, 12.5 MG PO BID for 30 Days, #30 TAB Prov:VALERIE WATSON RESIDENT 04/12/24 Albuterol Sulfate (Albuterol Sulfate Hfa) 108 Mcg/Act Aer, 108 MCG IN Q4HP PRN, #1 AER Prov:RANDI VIEIRA PAC 04/04/24 Calcium Carbonate-Simethicone (Maalox Advanced Maximum S) 1 Chw Chw, 1 CHW PO Q8HP PRN, #30 TAB.CHEW Prov:RANDI VIEIRA [facility] 04/04/24 Meclizine HCl (Meclizine 25) 25 Mg Tab, 25 MG PO Q8HP PRN, #15 TAB Prov:RANDI VIEIRA PAC 01/11/24 Loratadine (Claritin) 10 Mg Cap, 10 MG PO DAILY for 14 Days, #14 CAP Prov:RANDI VIEIRA [facility] 01/11/24 Sodium Phosphates (FLEET ENEMA SIX PACK) Enema Mirta, 1 PACK RE BIDP PRN, #6 EA Prov:RANDI VIEIRA PAC 01/11/24 Lactulose (Lactulose) 10 Gm/15 Ml Mary, 10 GM PO BIDP PRN, #150 ML Prov:RANDI VIEIRA PAC 01/11/24 Hydrocodone-Acetaminophen (Hydrocodone Bitartrate/AC 5-325 mg) 1 Tab Tab, 1 TAB PO QIDP, #20 TAB 0 Refills Prov:DION GRAHAM MD 01/17/22 Information Source: Patient Mode of Arrival: Ambulatory Location: Left Extremity Location: Calf, Other (Left-sided head/face/eye) Severity: Moderate Able to Move Extremity: Yes Bear Weight: Fully Pain: Moderate Hand Dominance: Right Mechanism: Spontaneous Circumstances: Spontaneous Onset of Symptoms: Spontaneous Symptoms: Pain DVT Risk Factors: NONE Past Medical History PAST MEDICAL HISTORY: Anemia, Anxiety, Arthritis, GERD Surgical History: Hernia Repair 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 BLOCK ARTIST Hx Family History Family History: Family hx of heart isra Family History (Other): Mother has Sickle cell anemia Social History Smoker: Non-Smoker Alcohol: Denies ETOH Use Drugs: Denies Drug Use Lives In: Home Constitutional: denies: chills, diaphoresis, fatigue, fever, malaise, sweats, weakness, others EENTM: reports: eye pain; denies: blurred vision, double vision, ear bleeding, ear discharge, ear drainage, ear pain, ear ringing, eye redness, hearing loss, mouth pain, mouth swelling, nasal discharge, nose bleeding, nose congestion, nose pain, photophobia, tearing, throat pain, throat swelling, voice changes, others Respiratory: denies: cough, hemoptysis, orthopnea, SOB at rest, shortness of breath, SOB with excertion, stridor, wheezing, others Cardiovascular: denies: chest pain, dizzy spells, diaphoresis, Dyspnea on exertion, edema, irregular heart beat, left arm pain, lightheadedness, palpitations, PND, syncope, others Gastrointestinal: denies: abdomen distended, abdominal pain, blood streaked bowels, constipated, diarrhea, dysphagia, difficulty swallowing, hematemesis, melena, nausea, poor appetite, poor fluid intake, rectal bleeding, rectal pain, vomiting, others Genitourinary: denies: abnormal vagina bleeding, burning, dyspareunia, dysuria, flank pain, frequency, hematuria, incontinence, pain, , vagina discharge, urgency, others Neurological: denies: dizziness, fainting, headache, left sided numbness, left sided weakness, numbness, paresthesia, pre-existing deficit, right sided numbness, right sided weakness, seizure, speech problems, tingling, tremors, weakness, others Musculoskeletal: reports: others (Left calf pain); denies: back pain, gout, joint pain, joint swelling, muscle pain, muscle stiffness, neck pain Integumetry: denies: bruises, change in color, change in hair/nails, dryness, laceration, lesions, lumps, rash, wounds, others Allergic/Immunocompromised: denies: Difficulty Healing, Frequent Infections, Hives, Itching, others Hematologic/Lymphatic: denies: anemia, blood clots, easy bleeding, easy bruising, swollen glands, others Endocrine: denies: excessive hunger, excessive sweating, excessive thirst, excessive urination, flushing, intolerance to cold, intolerance to heat, unexplained weight gain, unexplained weight loss, others Psychiatric: denies: anxiety, bipolar disorder, depression, hopeless, panic disorder, schizophrenia, sleepless, suicidal, others Physical Exam Exam Comments This patient is very histrionic and displays significant hypochondriac expressions. General Appearance: Moderate Distress (Guej-sc-zalmjafi distress due to head an d calf pain), Normal HEENT: Head (Unremarkable cranial evaluation. Left eye is unremarkable. No scleral injection, swelling or deformities.), Normal ENT Inspection, Pharynx Normal, TMs Normal Neck: Full Range of Motion, Non-Tender, Normal, Normal Inspection Respiratory: Chest Non-Tender, Lungs Clear, No Accessory Muscle Use, No Respiratory Distress, Normal Breath Sounds Cardiovascular: No Edema, No JVD, No Murmur, No Gallop, Normal Peripheral Pulses, Regular Rate/Rhythm Breast Exam: Deferred Gastrointestinal: No Organomegaly, Non Tender, No Pulsatile Mass, Normal Bowel Sounds, Soft Genitalia: Deferred Pelvic: Deferred Rectal: Deferred Extremities: Other (Left calf is tender to palpation throughout the gastroc region. No signs of trauma. No swelling.) Neurologic: Alert, consumer advocate II-XII nml as Tested, No Motor Deficits, Normal Affect, Normal Mood, No Sensory Deficits Cerebellar Function: Normal Reflexes: Normal Skin: Dry, Normal Color, Warm Lymphatic: No Adenopathy Was a procedure done? Was a procedure done?: No Differential Diagnosis EXT Differential Diagnosis: Other (Lumbar radiculopathy, intracranial mass, head pain, calf pain) X-Ray, Labs, Meds, VS Vital Signs Date Time Temp Pulse Resp B/P (MAP) Pulse Ox O2 Delivery O2 Flow Rate FiO2 09/24/24 01:48 97.8 113 18 138/86 (103) 100 X-Ray, Labs, Meds, VS Comment Patient refused Toradol while at the facility today. All studies performed the ED were evaluated by me personally. Imaging studies of the lumbar spine showed some mild disc degeneration that may be responsible for the patient's left-sided calf pain concerns. CT of head was unremarkable for any acute intracranial process or mass. Advised patient to follow up with the primary care provider for discussions related to her lumbar spines concerns and facial pain issues. Time of 1ST Reevaluation: 02:50 Reevaluation 1ST: Unchanged Consultation: PCP Patient Education/Counseling: Diagnosis, Treatment Family Education/Counseling: Diagnosis, Treatment Departure 1 Departure Time of Disposition: 02:51 Impression: Primary Impression: Lumbar radiculopathy Additional Impression: Headache Disposition: 01 HOME / SELF CARE / HOMELESS Condition: Stable Additional Instructions: Advise utilizing medication as needed for symptomatic relief as well as follow up with primary care provider for discussions related to today's visit. e-Prescriptions Ibuprofen Micronized (Ibuprofen) 800 Mg Tab 800 MG PO Q8HP PRN, #20 TAB Prov: RANDI VIEIRA PAC 09/24/24 Acetaminophen (Acetaminophen) 500 Mg Tab 500 MG PO Q4HP PRN, #30 TAB Prov: RANDI VIEIRA PAC 09/24/24 Discharged With: Self, Relative Critical Care Note Critical Care Time?: No Stability Stability form required: No Heart Score Heart Score: Heart Score Response (Comments) Value History N/A 0 EKG N/A 0 Age N/A 0 Risk Factors N/A 0 Troponin N/A 0 Total 0 RANDI VIEIRA PAC Sep 24, 2024 02:52
== END 2024-09-24 03:42 | disposition home or self-care (01) ==
LOC: ER 00:49
DX: M47.817 Spondylosis without myelopathy or radiculopathy, lumbosacral region (principal); K21.9 Gastro-esophageal reflux disease without esophagitis; R51.9 Headache, unspecified; Z79.52 Long term (current) use of systemic steroids; Z79.899 Other long term (current) drug therapy; Z88.0 Allergy status to penicillin; Z88.1 Allergy status to other antibiotic agents; Z98.890 Other specified postprocedural states
CPT/HCPCS: 70450; 72100; J1885

== ENCOUNTER 2024-11-08 16:41 | Emergency (ER) | payer MEDICAID ==
[~2024-11-08] VITALS: Ht 165.1 cm; Wt 55.4 kg
[~2024-11-08 16:41] MED LIST changes: +ACET500T58 PO; +IBUP-1455 PO
[2024-11-08 16:55] VITALS: BP 111/95; PULSE 83; RESP 20; O2SAT 100
[2024-11-08] MEDS ORDERED: AZIT-43 PO (19:05)
[2024-11-08] MEDS ORDERED: ACET500T58 PO (19:05)
--- NOTE | 2024-11-08 19:05 | ED.PDOC ---
Eye-HPI HPI Comments 34 YEAR OLD PRESENTS TO ER WITH COMPLAINTS OF SORE THROAT X3 DAYS. PATIENT REPORTS SHE HAS BEEN EXPERIENCING SORE THROAT AND CHILLS X 3 DAYS. SHE RATES HER SORE THROAT PAIN A 10/10. DENIES USE OF MEDICATIONS FOR CURRENTS. PRESENTS TO ER AMBULATORY ON ARRIVAL, WITH STEADY GAIT, SPEAKING IN CLEAR AND COMPLETE SENTENCES, IN NO DISTRESS AND IS NOTED TO HAVE LOW-GRADE FEVER ON ARRIVAL AT 100.0 F, DENYING ANY KNOWN FEVER PRIOR TO ARRIVAL TO ER. DENIES COUGH, N/V, DIFFICULTY SWALLOWING, TB/MOLD EXPOSURE, HEADACHE OR ANY FURTHER SYMPTOMS/COMPLAINTS Chief Complaint: Sore Throat Time Seen by MD: 18:10 Primary Care Provider: MARK Reviewed Notes: Nurses Notes, Medications, Allergies Allergies: Coded Allergies: Amoxicillin (Verified Allergy, Unknown, 07/06/24) Clindamycin (Verified Allergy, Unknown, 05/06/24) Metronidazole (Verified Allergy, Unknown, 07/06/24) Penicillins (Verified Allergy, Unknown, 07/06/24) Promethazine (Verified Allergy, Unknown, 05/06/24) Home Meds Active Scripts Acetaminophen (Acetaminophen) 500 Mg Tab, 500 MG PO Q4HPRN, #30 TAB 0 Refills Prov:SREEKANTH MAYFIELD 11/08/24 Azithromycin (Azithromycin) 250 Mg Tab, 250 MG PO DAILY MDD 500 for 5 Days, #6 TAB 0 Refills 2 TABLETS ORALLY ON DAY ONE, THEN 1 TABLET ORALLY DAILY FOR 4 DAYS Prov:SREEKANTH MAYFIELD 11/08/24 Ibuprofen Micronized (Ibuprofen) 800 Mg Tab, 800 MG PO Q8HP PRN, #20 TAB Prov:RANDI VIEIRA PAC 09/24/24 Acetaminophen (Acetaminophen) 500 Mg Tab, 500 MG PO Q4HP PRN, #30 TAB Prov:RANDI VIEIRA PAC 09/24/24 Levofloxacin Hemihydrate (LEVAQUIN 500 MG) 500 Mg Tab, 250 MG PO DAILY for 14 Days, #14 TAB Prov:RENETTA GASTELUM 08/27/24 Dexamethasone (Decadron) 4 Mg Tb, 8 TAB PO DAILY for 5 Days, #5 TAB Prov:RENETTA GASTELUM 08/04/24 Fluconazole (Diflucan) 150 Mg Tab, 1 TAB PO ONCE, #1 TAB Prov:RENETTA GASTELUM 07/07/24 Methylprednisolone (Medrol Dosepak) 4 Mg Leo, 4 MG PO UD, #21 TAB UAD Prov:RENETTA GASTELUM 07/07/24 Cephalexin Monohydrate (Cephalexin) 500 Mg Cap, 1 CAP PO TID, #30 CAP Prov:RENETTA GASTELUM 07/07/24 Methylprednisolone (Medrol Dosepak) 4 Mg Leo, 4 MG PO UD, #21 TAB UAD Prov:RENETTA GASTELUM 06/30/24 Omeprazole Magnesium (Omeprazole) 20 Mg Tab, 20 MG PO DAILY, #30 TAB Prov:LAKIA HEART MD 06/14/24 Ipbcjoacroa-Gmqznlmrh-Dfpmhtkm (Talicia 250-12.5-10 mg) 1 Cap Cap, 1 CAP PO DAILY for 14 Days, #14 CAP Prov:SILVIA JOSEPH 05/25/24 Ondansetron Odt 4MG Tab (ZOFRAN PO) 4 Mg Tb, 4 MG PO Q8HPRN PRN, #30 TAB ODT TAB-DISSOLVE IN MOUTH, THEN SWALLOW Prov:SERGIO PAVON MD 05/03/24 Omeprazole-Sodium Bicarbonate (Omeprazole/Sodium Bicarbo 20-1680 mg) 1 Pow Pow, 20 MG PO BIDAC, #28 POW Prov:SERGIO PAVON MD 05/03/24 Bismuth Subsalicylate (Sm Stomach Relief) 262 Mg/15 Ml Iliana, 524 MG PO Q6HR for 14 Days, #840 ML Prov:SERGIO PAVON MD 05/03/24 Ferrous Sulfate (Ferrous Sulfate) 325 Mg Tab, 325 MG PO DAILY, #30 TAB Prov:SERGIO PAVON MD 05/03/24 Docusate Sodium (Docusate Sodium) 100 Mg Cap, 100 MG PO BIDPRN PRN, #60 CAP Prov:SERGIO PAVON MD 05/03/24 Alum & Mag Hydrox-Simethicone (Maalox Plus) 30 Ml Ss, 30 ML GT 2XW PRN, #100 ML 0 Refills Prov:SARAI KENNEDY MD 04/18/24 Metoprolol Succinate (Metoprolol Succinate Er) 25 Mg Tab, 12.5 MG PO BID for 30 Days, #30 TAB Prov:SAYRA WATSONMARILYN RESIDENT 04/12/24 Albuterol Sulfate (Albuterol Sulfate Hfa) 108 Mcg/Act Aer, 108 MCG IN Q4HP PRN, #1 AER Prov:RANDI VIEIRA [facility] 04/04/24 Calcium Carbonate-Simethicone (Maalox Advanced Maximum S) 1 Chw Chw, 1 CHW PO Q8HP PRN, #30 TAB.CHEW Prov:RANDI VIEIRA [facility] 04/04/24 Meclizine HCl (Meclizine 25) 25 Mg Tab, 25 MG PO Q8HP PRN, #15 TAB Prov:RANDI VIEIRA [facility] 01/11/24 Loratadine (Claritin) 10 Mg Cap, 10 MG PO DAILY for 14 Days, #14 CAP Prov:RANDI VIEIRA [facility] 01/11/24 Sodium Phosphates (FLEET ENEMA SIX PACK) Enema Mirta, 1 PACK RE BIDP PRN, #6 EA Prov:RANDI VIEIRA [facility] 01/11/24 Lactulose (Lactulose) 10 Gm/15 Ml Mary, 10 GM PO BIDP PRN, #150 ML Prov:RANDI VIEIRA [facility] 01/11/24 Hydrocodone-Acetaminophen (Hydrocodone Bitartrate/AC 5-325 mg) 1 Tab Tab, 1 TAB PO QIDP, #20 TAB 0 Refills Prov:DION GRAHAM MD 01/17/22 Mode of Arrival: Ambulatory Past Medical History PAST MEDICAL HISTORY: Anemia, Anxiety, Arthritis, GERD Past Medical History (Other): H. 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 REFUND SPECIALIST Hx Family History Family History: Family hx of heart isra Family History (Other): Mother has Sickle cell anemia Social History Smoker: Non-Smoker Alcohol: Denies ETOH Use Drugs: Denies Drug Use Lives In: Home Constitutional: reports: others ( STATED IN HPI) EENTM: reports: others ( STATED IN HPI) Respiratory: denies: cough, hemoptysis, orthopnea, SOB at rest, shortness of breath, SOB with excertion, stridor, wheezing, others Cardiovascular: denies: chest pain, dizzy spells, diaphoresis, Dyspnea on exertion, edema, irregular heart beat, left arm pain, lightheadedness, palpitations, PND, syncope, others Gastrointestinal: denies: abdomen distended, abdominal pain, blood streaked bowels, constipated, diarrhea, dysphagia, difficulty swallowing, hematemesis, melena, nausea, poor appetite, poor fluid intake, rectal bleeding, rectal pain, vomiting, others Genitourinary: denies: abnormal vagina bleeding, burning, dyspareunia, dysuria, flank pain, frequency, hematuria, incontinence, pain, , vagina discharge, urgency, others Neurological: denies: dizziness, fainting, headache, left sided numbness, left sided weakness, numbness, paresthesia, pre-existing deficit, right sided numbness, right sided weakness, seizure, speech problems, tingling, tremors, weakness, others Musculoskeletal: denies: back pain, gout, joint pain, joint swelling, muscle pain, muscle stiffness, neck pain, others Integumetry: denies: bruises, change in color, change in hair/nails, dryness, laceration, lesions, lumps, rash, wounds, others Allergic/Immunocompromised: denies: Difficulty Healing, Frequent Infections, Hives, Itching, others Hematologic/Lymphatic: denies: anemia, blood clots, easy bleeding, easy bruising, swollen glands, others Endocrine: denies: excessive hunger, excessive sweating, excessive thirst, excessive urination, flushing, intolerance to cold, intolerance to heat, unexplained weight gain, unexplained weight loss, others Psychiatric: denies: anxiety, bipolar disorder, depression, hopeless, panic disorder, schizophrenia, sleepless, suicidal, others Physical Exam General Appearance: No Apparent Distress HEENT: PERRL/EOMI, Pharyngeal Erythema (MILD RIGHT-SIDED TONSILLAR SWELLING WITH ERYTHEMA NOTED WITHOUT EXUDATES. UVULA-NORMAL), TMs Normal Neck: Full Range of Motion, Non-Tender, Normal Respiratory: Chest Non-Tender, Lungs Clear, No Accessory Muscle Use, No Respiratory Distress, Normal Breath Sounds Cardiovascular: No Murmur, No Gallop, Regular Rate/Rhythm Breast Exam: Deferred Gastrointestinal: NOT DONE Genitalia: Deferred Pelvic: Deferred Rectal: Deferred Extremities: Normal capillary refill, Normal range of motion Neurologic: Alert, hard rock miner II-XII nml as Tested, No Motor Deficits, Normal Affect, Normal Mood, No Sensory Deficits Cerebellar Function: Normal Reflexes: Normal Skin: Dry, Normal Color, Warm Lymphatic: No Adenopathy Was a procedure done? Was a procedure done?: No Sedation Sedation?: No EENT DIFF Eye: N/A Sore Throat: Mononeucleosis, Peritonsillar Abscess, URI X-Ray, Labs, Meds, VS Vital Signs Date Time Temp Pulse Resp B/P (MAP) Pulse Ox O2 Delivery O2 Flow Rate FiO2 11/08/24 16:55 100.0 83 20 111/95 (100) 100 11/08/24 16:55 83 20 11/08/24 16:55 99.0 83 20 111/95 (100) 100 99.0 ROCEPHIN 1 G IM ORDERED SOLU-MEDROL 125 MG IM ORDERED PATIENT TOLERATING P.O. INTAKE WELL AND IN NO DISTRESS DURING ER VISIT/ PRIOR TO DISCHARGE ADVISED TO FOLLOW UP WITH PCP IN 1-2 DAYS PATIENT VERBALIZED UNDERSTANDING AND AGREEABLE WITH CURRENT PLAN OF CARE ADVISED TO RETURN TO ER IMMEDIATELY IF SYMPTOMS WORSE Time of 1ST Reevaluation: 18:44 Reevaluation 1ST: N/A Patient Education/Counseling: Diagnosis, Treatment, Prognosis, Need For Follow Up Family Education/Counseling: No Family Present Departure 1 Departure Time of Disposition: 19:00 Impression: Primary Impression: Acute tonsillitis Qualified Codes: J03.90 - Acute tonsillitis, unspecified Disposition: 01 HOME / SELF CARE / HOMELESS Condition: Stable e-Prescriptions Acetaminophen (Acetaminophen) 500 Mg Tab 500 MG PO Q4HPRN, #30 TAB 0 Refills Prov: SREEKANTH MAYFIELD 11/08/24 Azithromycin (Azithromycin) 250 Mg Tab 250 MG PO DAILY MDD 500 for 5 Days, #6 TAB 0 Refills 2 TABLETS ORALLY ON DAY ONE, THEN 1 TABLET ORALLY DAILY FOR 4 DAYS Prov: SREEKANTH MAYFIELD 11/08/24 Discharged With: Self Critical Care Note Critical Care Time?: No Stability Stability form required: No Heart Score Heart Score: Heart Score Response (Comments) Value History N/A 0 EKG N/A 0 Age N/A 0 Risk Factors N/A 0 Troponin N/A 0 Total 0 SREEKANTH MAYFIELD Nov 08, 2024 19:05
[2024-11-08 19:08] VITALS: TEMP 98.4
[2024-11-08] MEDS: methylPREDNISolone SOD SUCC 125 MG/2 ML VL IM ONE (19:17)
[2024-11-08] MEDS: cefTRIAXone SOD 1,000 MG VL IM ONE (19:17)
== END 2024-11-08 19:47 | disposition home or self-care (01) ==
LOC: ER 16:41
DX: J03.90 Acute tonsillitis, unspecified (principal); F41.9 Anxiety disorder, unspecified; M19.90 Unspecified osteoarthritis, unspecified site; K21.9 Gastro-esophageal reflux disease without esophagitis; Z98.890 Other specified postprocedural states; Z79.899 Other long term (current) drug therapy; Z79.52 Long term (current) use of systemic steroids; Z88.0 Allergy status to penicillin; Z88.1 Allergy status to other antibiotic agents
CPT/HCPCS: 96372; 99284; J0696; J2919